=== PATIENT | male | born 1945 | race Caucasian/White ===

== ENCOUNTER → 2017-04-30 | Outpatient (CLI) | payer MEDICARE, OTHER ==
[2017-04-30 11:02] LABS: Basophils % (A) 0 %; CH 30.9; CHCM 35.1; Eosinophils # (A) 0.2 k/uL (0-0.7); Eosinophils % (A) 4 %; HCT 42.8 % (39.0-53.0); HDW 2.74; Luc # (Auto) 0.13; Luc % (Auto) 3; Lymphocytes # (A) 1.7 k/uL (1.0-4.8); Lymphocytes % (A) 31 %; MCH 30.9 pg (25.0-35.0); MCV 88.5 fL (80.0-100.0); Mean Platelet Volume 7.8; Monocytes # (A) 0.3 k/uL (0-1.0); Monocytes % (A) 6 %; Neutrophils % (A) 57 %; RBC 4.84 m/uL (4.30-5.90); RDW 12.8 % (11.5-15.5); WBC 5.4 k/uL (3.8-10.6); WBC (Perox) 5.57
[2017-04-30 11:46] LABS: ALT 34 U/L (21-72); AST 32 U/L (17-59); Alkaline Phosphatase 109 U/L (38-126); Anion Gap 11 mmol/L; Blood Urea Nitrogen 14 mg/dL (9-20); Carbon Dioxide 29 mmol/L (22-30); Chloride 103 mmol/L (98-107); Cholesterol 154 mg/dL (<200); Glucose 103 mg/dL (74-99); HDL Cholesterol 48 mg/dL (40-60); Non-African American GFR(MDRD) >60 (>60 ml/min/1.73 sqM); Potassium 4.7 mmol/L (3.5-5.1); Sodium 143 mmol/L (137-145); Total Bilirubin 1.1 mg/dL (0.2-1.3); Total Protein 7.4 g/dL (6.3-8.2); Triglycerides 105 mg/dL (<150)
[2017-04-30 12:14] LABS: Prostate Specific Antigen 7.79 ng/mL (0.00-4.00)
== END | disposition home or self-care (01) ==
LOC: LABWHC1 10:24
PROVIDERS: ATTEND Internal Medicine
DX: Z00.00 Encounter for general adult medical examination without abnormal findings (principal); E78.5 Hyperlipidemia, unspecified; R97.20 Elevated prostate specific antigen [PSA]
CPT/HCPCS: 36415; 80053; 80061; 84153; 84439; 84443; 85025

== ENCOUNTER → 2018-11-09 | Outpatient (CLI) | payer MEDICARE, OTHER ==
[2018-11-09 14:29] LABS: Basophils % (A) 1 %; Eosinophils # (A) 0.2 k/uL (0-0.7); Eosinophils % (A) 3 %; HCT 45.7 % (39.0-53.0); HGB 14.4 gm/dL (13.0-17.5); Lymphocytes # (A) 1.8 k/uL (1.0-4.8); Lymphocytes % (A) 27 %; MCH 29.7 pg (25.0-35.0); MCHC 31.6 g/dL (31.0-37.0); MCV 94.2 fL (80.0-100.0); Mean Platelet Volume 7.7; Monocytes # (A) 0.4 k/uL (0-1.0); Monocytes % (A) 6 %; Neutrophils # (A) 4.2 k/uL (1.3-7.7); Neutrophils % (A) 62 %; Platelet Count 231 k/uL (150-450); RBC 4.85 m/uL (4.30-5.90); RDW 12.3 % (11.5-15.5); WBC 6.7 k/uL (3.8-10.6)
[2018-11-09 20:56] LABS: ALT 18 U/L (10-49); AST 27 U/L (14-35); Albumin/Globulin Ratio 2.17 (1.20-2.10); Alkaline Phosphatase 123 U/L (41-126); Calcium 9.8 mg/dL (8.7-10.3); Carbon Dioxide 28.2 mmol/L (21.6-31.8); Chloride 105 mmol/L (96-109); Cholesterol 139 mg/dL (0-200); Globulin 2.3 g/dL (2.1-3.7); Glucose 96 mg/dL (70-110); Potassium 3.9 mmol/L (3.5-5.5); Sodium 142 mmol/L (135-145); Total Bilirubin 0.6 mg/dL (0.3-1.2); Total Protein 7.3 g/dL (6.2-8.2); Triglycerides <50.0 mg/dL (0.0-149.0); VLDL Calculation 9.98 mg/dL (5.00-40.00)
== END | disposition home or self-care (01) ==
LOC: LABWHC1 13:47
PROVIDERS: ATTEND Internal Medicine
DX: Z00.00 Encounter for general adult medical examination without abnormal findings (principal); R97.20 Elevated prostate specific antigen [PSA]
CPT/HCPCS: 36415; 80053; 80061; 84153; 84439; 84443; 85025

== ENCOUNTER → 2019-05-03 | Outpatient (CLI) | payer MEDICARE, OTHER ==
[2019-05-03 10:16] LABS: Basophils % (A) 1 %; Eosinophils # (A) 0.3 k/uL (0-0.7); Eosinophils % (A) 5 %; HCT 41.2 % (39.0-53.0); HGB 13.5 gm/dL (13.0-17.5); Lymphocytes # (A) 1.5 k/uL (1.0-4.8); Lymphocytes % (A) 28 %; MCH 30.4 pg (25.0-35.0); MCHC 32.8 g/dL (31.0-37.0); MCV 92.6 fL (80.0-100.0); Monocytes # (A) 0.3 k/uL (0-1.0); Monocytes % (A) 6 %; Neutrophils # (A) 3.3 k/uL (1.3-7.7); Neutrophils % (A) 60 %; Platelet Count 197 k/uL (150-450); RBC 4.45 m/uL (4.30-5.90); RDW 12.6 % (11.5-15.5); WBC 5.5 k/uL (3.8-10.6)
[2019-05-03 11:46] LABS: Erythrocyte Sedimentation Rate 8 mm/hr (0-15)
[2019-05-03 16:58] LABS: African American GFR (CKD) 106.2 (60.0-200.0); Albumin 4.7 g/dL (3.80-4.90); Albumin/Globulin Ratio 2.35 (1.60-3.17); Anion Gap 7.8 mmol/L (4.00-12.00); Calcium 9.4 mg/dL (8.7-10.3); Carbon Dioxide 28.2 mmol/L (21.6-31.8); Potassium 4.3 mmol/L (3.5-5.5); Total Bilirubin 0.6 mg/dL (0.2-1.2); Total Protein 6.7 g/dL (6.2-8.2)
== END | disposition home or self-care (01) ==
LOC: LABWHC1 09:44
PROVIDERS: ATTEND Internal Medicine
DX: R63.4 Abnormal weight loss (principal); Z12.5 Encounter for screening for malignant neoplasm of prostate
CPT/HCPCS: 84439; 80053; 85652; 84443; 85025; 86038; 36415; G0103

== ENCOUNTER → 2019-05-11 | Outpatient (CLI) | payer MEDICARE, OTHER ==
[2019-05-11 08:09] LABS: African American GFR (CKD) >90 (>60 ml/min/1.73 sqM); Blood Urea Nitrogen 18 mg/dL (9-20)
--- NOTE | 2019-05-11 11:59 | CT ---
EXAMINATION TYPE: CT ChestAbdPelvis w con DATE OF EXAM: 05/11/2019 COMPARISON: Chest x-ray 05/03/2019 HISTORY: Wt Loss CT DLP: 645.9 mGycm Automated exposure control for dose reduction was used. CONTRAST: CT scan of the chest, abdomen and pelvis is performed with Oral Contrast and with IV Contrast, patien t injected with 100 mL of Isovue 300. FINDINGS: LUNGS: The lungs are grossly clear, there is no concerning parenchymal mass or nodule identified. Min imal basilar atelectatic changes noted. There is no pleural effusion or pneumothorax seen. The trac heobronchial tree is patent. MEDIASTINUM: There are no greater than 1 cm hilar or mediastinal lymph nodes. No pericardial effusi on is seen. There are some mild coronary artery calcifications AORTA: 5.2 cm infrarenal abdominal aortic aneurysm is present, there is luminal plaque, neck of the aneurysm measures approximately 2 cm, common iliac arteries are not aneurysmal, extensive atheromatou s changes are present throughout the iliac vasculature. OTHER: Thickening of the gastric wall may be due to lack of distention.. LIVER/GB: No significant abnormality is appreciated. PANCREAS: No significant abnormality is seen. SPLEEN: No significant abnormality is seen. ADRENALS: No significant abnormality is seen. KIDNEYS: No significant abnormality is seen. REPRODUCTIVE ORGANS: Prostate is enlarged and shows associated calcification. Inferior impression on the urinary bladder is present BOWEL: Diverticular changes are seen within the sigmoid colon. FREE AIR: No Free Air visible. ASCITES: None seen. RETROPERITONEAL ADENOPATHY: No retroperitoneal adenopathy is seen. LYMPH NODES: No greater than 1 cm abdominal or pelvic lymph nodes are appreciated. URINARY BLADDER: No significant abnormality is seen. PELVIC ADENOPATHY: None visualized. OSSEOUS STRUCTURES: Degenerative disc disease and facet arthropathy noted within the lumbar spine, t here is a spinal curvature present. IMPRESSION: Infrarenal abdominal aortic aneurysm. Additional findings above. A Yellow level critical message alert has been initiated for Catherine Lancaster MD via the [employer] Critical Results System on 05/11/2019 11:57 AM. This message alert has been sent to Catherine Lancaster MD vi a the preferences provided by the clinician for the receipt of Radiology Critical Findings. Message I D [id number].
== END | disposition home or self-care (01) ==
LOC: RADCTMAIN 07:21
PROVIDERS: ATTEND Internal Medicine
DX: R63.4 Abnormal weight loss (principal); Z13.89 Encounter for screening for other disorder
CPT/HCPCS: 82565; 84520; 71260; 74177; 36415; Q9967

== ENCOUNTER 2019-07-23 10:37 | Day surgery (SDC) | payer MEDICARE, OTHER ==
[2019-07-21 09:27] VITALS: BMI 22.3
[~2019-07-23 10:37] MED LIST: LIDOCAINE 1% 20 ML VIAL (10MG/ML) FOR IV START INTRADERMA PRN
[2019-07-23 11:06] VITALS: TEMP 98.7
[2019-07-23] MEDS: LACTATED RINGERS 1,000 ML IV SCH ×2 (11:08→12:30)
[2019-07-23] MEDS ORDERED: MIDAZOLAM 2 MG/2 ML VIAL ONE (12:32)
[2019-07-23] MEDS ORDERED: LIDOCAINE 1% INJ 10MG/ML (20 ML MDV) ONE (12:32)
[2019-07-23] MEDS ORDERED: fentaNYL (PF) 50 MCG/ML 2 ML AMP ONE (12:32)
[2019-07-23] MEDS ORDERED: PROPOFOL 10 MG/ML 20 ML VIAL IV ONE (12:32)
--- NOTE | 2019-07-23 13:00 | P.PCN ---
Date of Procedure: 07/23/19 Procedure(s) Performed: Brief history: Patient is a pleasant 74-year-old white male, scheduled for an elective upper endoscopy as well as colonoscopy as a part of evaluation of GERD and screening for colorectal neoplasia. Procedure performed: Esophagogastroduodenoscopy with biopsy Colonoscopy with snare polypectomy and biopsy Preoperative diagnosis: GERD Screening for colon cancer Anesthesia: MAC Procedure: After informed consent was obtained from the patient was brought into the endoscopy unit and IV sedation was administered by anesthesia under continuous monitoring. Initially upper endoscopy was done. The Olympus GF 160 video endoscope was inserted inserted into the mouth and esophagus intubated without any difficulty and was gradually advanced into the stomach and duodenum and carefully examined. The bulb and second part of the duodenum appeared normal. The scope was then withdrawn into the stomach adequately insufflated with air and upon careful examination the antrum and body, cardia and fundus appeared normal. The scope was then withdrawn into the esophagus. The GE junction was located at 40 cm to the incisors. It appeared regular with no erythema erosions or ulcerations. Rest of the esophagus appeared normal. Patient tolerated the procedure well. At this time the patient continued to remain sedation. Initial digital rectal examination was normal. Olympus CF 160 video colonoscope was then inserted into the rectum and gradually advanced to the cecum without any difficulty. Careful examination was performed as the scope was gradually being withdrawn. The prep was excellent. The base of the cecum there was a 2 mm polyp that was removed by cold biopsy. In the ascending colon there was a 5 mm broad-based polyp removed by snare polypectomy. In the transverse colon there was a 7-8 mm broad-based polyp removed by snare polypectomy. In the descending colon there was a 2 mm polyp that was removed by snare polypectomy. Rest of the The cecum, ascending colon, transverse colon, descending colon, sigmoid colon and rectum appeared normal. Retroflexion was performed in the rectum and no lesions were noted. Patient tolerated the procedure well. Impression: 1. Upper endoscopy revealed mild antral gastritis 2. Colonoscopy revealed: a) 2 mm cecal polyp status post removal by cold biopsy b) 5 mm ascending colon polyp serous was snare polypectomy c) 7-8 mm transverse colon polyps is post polypectomy d) 3 mm descending colon polyp status post polypectomy Recommendations: Findings of this examination were discussed with the patient as well as a family. He was advised to follow with the biopsy results. If the biopsy shows an adenoma he can have a repeat colonoscopy in 3 years
[2019-07-23 13:08] VITALS: RESP 16
[2019-07-23 13:28] VITALS: BP 109/71; PULSE 72
== END 2019-07-23 13:40 | disposition home or self-care (01) ==
LOC: ORWHC2ENDO 10:37
PROVIDERS: ATTEND Internal Medicine Gastroenterology
DX: Z12.11 Encounter for screening for malignant neoplasm of colon (principal); D12.0 Benign neoplasm of cecum; D12.3 Benign neoplasm of transverse colon; K63.5 Polyp of colon; K29.50 Unspecified chronic gastritis without bleeding; I10 Essential (primary) hypertension; E78.5 Hyperlipidemia, unspecified; I71.4 Abdominal aortic aneurysm, without rupture; F17.210 Nicotine dependence, cigarettes, uncomplicated; N42.9 Disorder of prostate, unspecified; R63.4 Abnormal weight loss; Z68.22 Body mass index [BMI] 22.0-22.9, adult; Z79.82 Long term (current) use of aspirin; Z79.899 Other long term (current) drug therapy
CPT/HCPCS: 88305; 88342; 45380; 45385; 43239; J2250; J2001; J3010; J2704

== ENCOUNTER 2019-09-24 17:31 | Emergency (ER) | payer MEDICARE, OTHER ==
[2019-09-24 17:45] VITALS: BP 157/89; PULSE 101; RESP 18; TEMP 97.4
--- NOTE | 2019-09-24 18:28 | ED ---
Fall HPI - General Chief Complaint: Fall Stated Complaint: Fall, face & arm injury Time Seen by Provider: 09/24/19 17:50 Source: patient, RN notes reviewed, old records reviewed Limitations: no limitations - History of Present Illness Initial Comments: This is a 74-year-old male the ER status post fall patient unsure of events surrounding fall happened at his son's house. Patient believes he just took a wrong step as he believes that he stepped to long and he fell, did hit his had his nose and his left wrist. Denying loss of consciousness is not on blood thinners. Patient did then drive himself to his house and then reports to his with the ER about 2 hours later. 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 Witnessed: yes, by family Place Fall Occurred: home Loss of Consciousness: none Prolonged Down Time?: no Symptoms Prior to Fall: none Location: head, face Location - Extremities: Left: Hand Severity: moderate Severity scale (1-10): 3 Quality: dull, stabbing Context: tripped/slipped Associated Symptoms: denies - Related Data Home Medications Medication Instructions Recorded Confirmed Simvastatin 20 mg PO HS 09/28/15 07/23/19 Aspirin [Adult Low Dose Aspirin EC] 81 mg PO DAILY 07/21/19 07/23/19 Losartan [Cozaar] 50 mg PO DAILY 07/21/19 07/23/19 amLODIPine [Norvasc] 5 mg PO DAILY 07/21/19 07/23/19 Allergies Allergy/AdvReac Type Severity Reaction Status Date / Time No Known Allergies Allergy Verified 09/24/19 17:45 Review of Systems ROS Statement: Those systems with pertinent positive or pertinent negative responses have been documented in the HPI. ROS Other: All systems not noted in ROS Statement are negative. 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), ENLARGED PROSTATE History of Any Multi-Drug Resistant Organisms: None Reported Past Surgical History: Appendectomy Past Anesthesia/Blood Transfusion Reactions: No Reported Reaction Past Psychological History: No Psychological Hx Reported Smoking Status: Current every day smoker Past Alcohol Use History: None Reported Past Drug Use History: None Reported - Past Family History Father Family Medical History: Cancer Brother(s) Family Medical History: Cancer Sister(s) Family Medical History: Cancer General Exam Limitations: no limitations General appearance: alert, in no apparent distress Head exam: Present: normocephalic, normal inspection. Absent: atraumatic (Patient does have obvious nasal fracture with deformity and swelling) Eye exam: Present: normal appearance, PERRL, EOMI. Absent: scleral icterus, conjunctival injection, periorbital swelling ENT exam: Present: normal exam, mucous membranes moist Neck exam: Present: normal inspection. Absent: tenderness, meningismus, lymphadenopathy Respiratory exam: Present: normal lung sounds bilaterally. Absent: respiratory distress, wheezes, rales, rhonchi, stridor Cardiovascular Exam: Present: regular rate, normal rhythm, normal heart sounds. Absent: systolic murmur, diastolic murmur, rubs, gallop, clicks GI/Abdominal exam: Present: soft, normal bowel sounds. Absent: distended, tenderness, guarding, rebound, rigid Extremities exam: Present: normal inspection, full ROM, normal capillary refill, other (First showed deformity, 2+ pulses radial and all are, patient has full range of motion and good sensation). Absent: tenderness, pedal edema, joint swelling, calf tenderness Back exam: Present: normal inspection Neurological exam: Present: alert, oriented X3, CN II-XII intact Psychiatric exam: Present: normal affect, normal mood Skin exam: Present: warm, dry, intact, normal color. Absent: rash Course Vital Signs 09/24/19 17:43 Temperature 97.4 F L Pulse Rate 101 H Respiratory 18 Rate Blood Pressure 157/89 O2 Sat by Pulse 97 Oximetry - Reevaluation(s) Reevaluation #1: 09/24/19 19:04 Medical records reviewed Reevaluation #2: 09/24/19 19:04 had a persistent bleeding from the nose but no septal hematoma is noted on reexam Reevaluation #3: 09/24/19 19:04 Patient is able to ambulate without difficulty Medical Decision Making - Medical Decision Making 74 male the ER status post trip and fall patient had troponin fall left wrist injury head injury with nasal fracture. Patient now requiring pain medication currently. He will be discharged home - Radiology Data Radiology results: report reviewed (CT brain C-spine and x-ray wrist is interpreted as negative for fracture and negative for traumatic injury), image reviewed Disposition Clinical Impression: Fall, Head injury, Contusion of left wrist, Nasal fracture Disposition: HOME SELF-CARE Instructions (If sedation given, give patient instructions): Fall Prevention for Older Adults (ED), Nasal Fracture (ED), Wrist Injury (ED) Is patient prescribed a controlled substance at d/c from ED?: No Referrals: Catherine Lancaster MD [Primary Care Provider] - 1-2 days
--- NOTE | 2019-09-24 18:34 | CT ---
EXAMINATION TYPE: CT brain sisi matthews DATE OF EXAM: 09/24/2019 COMPARISON: None HISTORY: fall Headache. Neck pain CT DLP: combined DLP 1133.9 mGycm Automated exposure control for dose reduction was used. TECHNIQUE: CT scan of the head and cervical spine are performed without contrast. FINDINGS: There is mild cerebral atrophy. There is no mass effect nor midline shift. There is no si gn of intracranial hemorrhage. The calvarium is intact. Cervical vertebra have normal alignment. There is hypertrophic anterior spurring in the lower cervica l spine. Skull base is intact. Posterior elements are intact. There is mild facet arthropathy. There is no evidence of cervical spine fracture. There is some mucosal thickening in the ethmoid sinuses. IMPRESSION: Mild cerebral atrophy. No acute intracranial abnormality. Spondylotic changes in the cervical spine. No fracture seen.
--- NOTE | 2019-09-24 18:36 | CT ---
EXAMINATION TYPE: CT facial bones wo con DATE OF EXAM: 09/24/2019 COMPARISON: None HISTORY: fall CT DLP: combined DLP 1133.9 mGycm Automated exposure control for dose reduction was used. TECHNIQUE: CT scan of the sinuses is performed without contrast, axial images are obtained, coronal r eformatted images are also reviewed. FINDINGS: The mandibular ring is intact. Temporomandibular joints are intact and zygomatic arches are intact. There is comminuted fracture of the nasal bone with some displacement to the left side. Ther e is soft tissue swelling anterior to the nasal bone on the right side. There is extensive increased density in the nasopharynx and ethmoid sinuses consistent with debris and blood clot. The maxillary sinuses are normally aerated. There is no evidence of a blowout fracture. The orbital m argins are intact. The maxilla appears intact. There is normal aeration of the mastoid sinuses. There is no evidence of orbital mass. IMPRESSION: Comminuted nasal bone fracture with hemorrhage and debris in the nasopharynx and ethmoid sinus. Soft tissue swelling. No orbital fracture seen.
--- NOTE | 2019-09-24 19:01 | XR ---
EXAMINATION TYPE: XR wrist complete LT DATE OF EXAM: 09/24/2019 COMPARISON: NONE HISTORY: Pain and swelling TECHNIQUE: 4 views FINDINGS: There is some narrowing of the radiocarpal joint space. I see no fracture nor dislocation. There is deformity of the scaphoid consistent with an old injury. There is moderate osteoarthritis at the first carpometacarpal joint. IMPRESSION: Osteoarthritis. No acute fracture seen. Moderately severe osteoarthritis at the first car pometacarpal joint.
== END 2019-09-24 19:54 | disposition home or self-care (01) ==
LOC: EC 17:31
DX: S02.2XXA Fracture of nasal bones, initial encounter for closed fracture (principal); S60.212A Contusion of left wrist, initial encounter; E78.5 Hyperlipidemia, unspecified; I10 Essential (primary) hypertension; F17.200 Nicotine dependence, unspecified, uncomplicated; Z79.82 Long term (current) use of aspirin; Z79.899 Other long term (current) drug therapy; W01.0XXA Fall on same level from slipping, tripping and stumbling without subsequent striking against object, initial encounter; Y93.89 Activity, other specified; Y92.009 Unspecified place in unspecified non-institutional (private) residence as the place of occurrence of the external cause
CPT/HCPCS: 70450; 70486; 72125; 99284

== ENCOUNTER → 2019-09-29 | Outpatient (CLI) | payer MEDICARE, OTHER ==
[2019-09-29 12:25] LABS: Basophils # (A) 0.1 k/uL (0-0.2); Basophils % (A) 1 %; Eosinophils # (A) 0.4 k/uL (0-0.7); Eosinophils % (A) 5 %; HCT 41.4 % (39.0-53.0); HGB 13.4 gm/dL (13.0-17.5); Lymphocytes # (A) 1.6 k/uL (1.0-4.8); Lymphocytes % (A) 22 %; MCH 30.3 pg (25.0-35.0); MCHC 32.5 g/dL (31.0-37.0); MCV 93.3 fL (80.0-100.0); Mean Platelet Volume 7.1; Monocytes # (A) 0.5 k/uL (0-1.0); Monocytes % (A) 6 %; Neutrophils # (A) 4.8 k/uL (1.3-7.7); Neutrophils % (A) 65 %; Platelet Count 282 k/uL (150-450); RBC 4.43 m/uL (4.30-5.90); RDW 12.1 % (11.5-15.5); WBC 7.5 k/uL (3.8-10.6)
[2019-09-29 13:56] LABS: Erythrocyte Sedimentation Rate 14 mm/hr (0-15)
[2019-09-29 17:52] LABS: T4, Free (Free Thyroxine) 1.1 ng/dL (0.80-1.80)
[2019-09-29 18:03] LABS: African American GFR (CKD) 106.2 (60.0-200.0); Albumin 4.7 g/dL (3.80-4.90); Albumin/Globulin Ratio 2.24 (1.60-3.17); Anion Gap 9.8 mmol/L (4.00-12.00); BUN/Creat Ratio 24.29 Ratio (12.00-20.00); Calcium 9.5 mg/dL (8.7-10.3); Carbon Dioxide 28.2 mmol/L (21.6-31.8); Globulin 2.1 g/dL (1.6-3.3); Potassium 5.2 mmol/L (3.5-5.5); Total Bilirubin 0.7 mg/dL (0.3-1.2); Total Protein 6.8 g/dL (6.2-8.2)
== END | disposition home or self-care (01) ==
LOC: LABWHC1 11:06
PROVIDERS: ATTEND Internal Medicine
DX: R55 Syncope and collapse (principal)
CPT/HCPCS: 36415; 80053; 82607; 84439; 84443; 85025; 85652

== ENCOUNTER → 2020-04-24 | Outpatient (CLI) | payer MEDICARE | END | disposition home or self-care (01) | LOC: LABWHC1 13:25 | PROVIDERS: ATTEND Urology | DX: R97.20 Elevated prostate specific antigen [PSA] (principal) | CPT/HCPCS: 36415; 84153 ==

== ENCOUNTER → 2020-09-19 | Outpatient (CLI) | payer MEDICARE ==
[2020-09-19 11:31] LABS: Basophils # (A) 0.1 k/uL (0-0.2); Basophils % (A) 1 %; Eosinophils # (A) 0.3 k/uL (0-0.7); Eosinophils % (A) 4 %; HCT 46.5 % (39.0-53.0); HGB 15.1 gm/dL (13.0-17.5); Lymphocytes % (A) 27 %; MCH 30.8 pg (25.0-35.0); MCHC 32.5 g/dL (31.0-37.0); MCV 94.8 fL (80.0-100.0); Mean Platelet Volume 8.9; Monocytes # (A) 0.5 k/uL (0-1.0); Monocytes % (A) 7 %; Neutrophils # (A) 4.6 k/uL (1.3-7.7); Neutrophils % (A) 60 %; Platelet Count 226 k/uL (150-450); RDW 12.5 % (11.5-15.5); WBC 7.6 k/uL (3.8-10.6)
[2020-09-19 17:40] LABS: African American GFR (CKD) 105.5 (60.0-200.0); Albumin 4.7 g/dL (3.80-4.90); Albumin/Globulin Ratio 1.81 (1.60-3.17); Anion Gap 7.6 mmol/L (4.00-12.00); BUN/Creat Ratio 11.43 Ratio (12.00-20.00); Calcium 9.8 mg/dL (8.7-10.3); Carbon Dioxide 29.4 mmol/L (21.6-31.8); Chol/HDL Ratio 3.76; Globulin 2.6 g/dL (1.6-3.3); LDL Cholesterol,Calculated 87.8 mg/dL (0.0-131.0); Potassium 5.4 mmol/L (3.5-5.5); Total Bilirubin 0.5 mg/dL (0.2-1.2); Total Protein 7.3 g/dL (6.2-8.2); VLDL Calculation 39.2 mg/dL (5.00-40.00)
== END | disposition home or self-care (01) ==
LOC: LABWHC1 08:57
PROVIDERS: ATTEND Internal Medicine
DX: Z00.00 Encounter for general adult medical examination without abnormal findings (principal); E78.5 Hyperlipidemia, unspecified; I10 Essential (primary) hypertension
CPT/HCPCS: 36415; 80053; 80061; 84439; 84443; 85025

== ENCOUNTER → 2021-04-24 | Outpatient (CLI) | payer MEDICARE | END | disposition home or self-care (01) | LOC: LABWHC1 09:20 | PROVIDERS: ATTEND Urology | DX: R97.20 Elevated prostate specific antigen [PSA] (principal) | CPT/HCPCS: 36415; 84153 ==

== ENCOUNTER → 2021-12-03 | Outpatient (CLI) | payer MEDICARE ==
[2021-12-03 14:16] LABS: Basophils # (A) 0.04 X 10*3/uL (0.00-0.10); Basophils % (A) 0.7 %; Eosinophils # (A) 0.24 X 10*3/uL (0.04-0.35); HGB 13.6 g/dL (13.0-17.0); Lymphocytes # (A) 1.82 X 10*3/uL (0.90-5.00); Lymphocytes % (A) 30.1 %; MCH 28.8 pg (27.0-32.0); MCHC 31.6 g/dL (32.0-37.0); MCV 91.1 fL (80.0-97.0); Mean Platelet Volume 11.6 fL (9.5-12.2); Monocytes # (A) 0.62 X 10*3/uL (0.20-1.00); Monocytes % (A) 10.3 %; Neutrophils # (A) 3.28 X 10*3/uL (1.80-7.70); Neutrophils % (A) 54.2 %; Platelet Count 231 X 10*3/uL (140-440); RBC 4.72 X 10*6/uL (4.40-5.60); RDW 14.1 % (11.5-14.5); WBC 6.04 X 10*3/uL (4.50-10.00)
[2021-12-03 15:49] LABS: ALT 31 U/L (10-49); AST 33 U/L (14-35); African American GFR (CKD) 101.7 (60.0-200.0); Albumin/Globulin Ratio 1.88 (1.60-3.17); Alkaline Phosphatase 123 U/L (41-126); BUN/Creat Ratio 22.47 Ratio (12.00-20.00); Blood Urea Nitrogen 16.9 mg/dL (9.0-27.0); Calcium 9.6 mg/dL (8.7-10.3); Carbon Dioxide 24.8 mmol/L (20.0-27.5); Chloride 103 mmol/L (96-109); Chol/HDL Ratio 3.12 Ratio; Globulin 2.6 g/dL (1.6-3.3); Glucose 117 mg/dL (70-110); LDL Cholesterol,Calculated 83.3 mg/dL (0.0-131.0); Non-African American GFR(CKD) 87.8 (60.0-200.0); Sodium 141 mmol/L (135-145); Total Protein 7.6 g/dL (6.2-8.2); VLDL Calculation 16.58 mg/dL (5.00-40.00)
== END | disposition home or self-care (01) ==
LOC: LABWHC1 08:44
PROVIDERS: ATTEND Internal Medicine
DX: Z00.00 Encounter for general adult medical examination without abnormal findings (principal); E78.5 Hyperlipidemia, unspecified; I10 Essential (primary) hypertension
CPT/HCPCS: 36415; 80053; 80061; 84439; 84443; 85025

== ENCOUNTER → 2022-04-24 | Outpatient (CLI) | payer MEDICARE | END | disposition home or self-care (01) | LOC: LABWHC1 08:40 | PROVIDERS: ATTEND Urology | DX: R97.20 Elevated prostate specific antigen [PSA] (principal) | CPT/HCPCS: 36415; 84153 ==

== ENCOUNTER → 2022-10-24 | Outpatient (CLI) | payer MEDICARE | END | disposition home or self-care (01) | LOC: LABWHC1 08:57 | PROVIDERS: ATTEND Urology | DX: R97.20 Elevated prostate specific antigen [PSA] (principal) | CPT/HCPCS: 36415; 84153 ==

== ENCOUNTER → 2022-12-10 | Outpatient (CLI) | payer MEDICARE ==
[2022-12-10 14:42] LABS: Basophils # (A) 0.06 X 10*3/uL (0.00-0.10); Basophils % (A) 0.6 %; Eosinophils # (A) 0.26 X 10*3/uL (0.04-0.35); Eosinophils % (A) 2.8 %; HCT 43.1 % (39.6-50.0); HGB 14.1 g/dL (13.0-17.0); Immature Grans, Automated 1.1 %; Lymphocytes # (A) 1.86 X 10*3/uL (0.90-5.00); Lymphocytes % (A) 19.8 %; MCH 29.7 pg (27.0-32.0); MCHC 32.7 g/dL (32.0-37.0); MCV 90.9 fL (80.0-97.0); Mean Platelet Volume 11.3 fL (9.5-12.2); Monocytes # (A) 0.82 X 10*3/uL (0.20-1.00); Monocytes % (A) 8.7 %; NRBC Per 100 WBC 0 /100 WBCS (0.0-0.0); Platelet Count 237 X 10*3/uL (140-440); RBC 4.74 X 10*6/uL (4.40-5.60); RDW 12.8 % (11.5-14.5)
[2022-12-10 19:28] LABS: ALT 38 U/L (10-49); AST 42 U/L (14-35); African American GFR (CKD) 105.5 (60.0-200.0); Albumin/Globulin Ratio 1.79 (1.60-3.17); Alkaline Phosphatase 115 U/L (41-126); BUN/Creat Ratio 23.08 Ratio (12.00-20.00); Blood Urea Nitrogen 15.6 mg/dL (9.0-27.0); Calcium 9.6 mg/dL (8.7-10.3); Chloride 103 mmol/L (96-109); Chol/HDL Ratio 3.84 Ratio; Globulin 2.8 g/dL (1.6-3.3); Glucose 109 mg/dL (70-110); LDL Cholesterol,Calculated 102.3 mg/dL (0.0-131.0); Non-African American GFR(CKD) 91.1 (60.0-200.0); Sodium 141 mmol/L (135-145); Total Protein 7.7 g/dL (6.2-8.2)
== END | disposition home or self-care (01) ==
LOC: LABWHC1 10:00
PROVIDERS: ATTEND Internal Medicine
DX: I10 Essential (primary) hypertension (principal); E78.5 Hyperlipidemia, unspecified
CPT/HCPCS: 36415; 80053; 80061; 84439; 84443; 85025

== ENCOUNTER → 2023-04-24 | Outpatient (CLI) | payer MEDICARE, SELFPAY | END | disposition home or self-care (01) | LOC: LABWHC1 12:03 | PROVIDERS: ATTEND Urology | DX: R97.20 Elevated prostate specific antigen [PSA] (principal) | CPT/HCPCS: 36415; 84153 ==

== ENCOUNTER → 2023-06-02 | Outpatient (CLI) | payer MEDICARE, SELFPAY | END | disposition home or self-care (01) | LOC: LABWHC1 09:02 | PROVIDERS: ATTEND Urology | DX: R97.20 Elevated prostate specific antigen [PSA] (principal) | CPT/HCPCS: 36415; 84153 ==

== ENCOUNTER → 2023-10-22 | Outpatient (CLI) | payer MEDICARE ==
[2023-10-22 16:01] LABS: Chol/HDL Ratio 3.46 Ratio; LDL Cholesterol,Calculated 89.6 mg/dL (0.0-131.0)
[2023-10-22 16:02] LABS: ALT 40 U/L (10-49); AST 42 U/L (14-35)
== END | disposition home or self-care (01) ==
LOC: LABWHC1 10:39
PROVIDERS: ATTEND Internal Medicine Cardiovascular Disease
DX: E78.2 Mixed hyperlipidemia (principal)
CPT/HCPCS: 36415; 80061; 84450; 84460

== ENCOUNTER → 2023-11-04 | Outpatient (CLI) | payer MEDICARE | END | disposition home or self-care (01) | LOC: LABWHC1 08:27 | PROVIDERS: ATTEND Urology | DX: R97.20 Elevated prostate specific antigen [PSA] (principal) | CPT/HCPCS: 36415; 84153 ==

== ENCOUNTER → 2023-12-05 | Outpatient (CLI) | payer MEDICARE ==
--- NOTE | 2023-12-07 21:00 | MR ---
EXAMINATION TYPE: MR Prostate wo/w con DATE OF EXAM: 12/05/2023 9:19 AM COMPARISON: 05/11/2019. CLINICAL INDICATION:Male, 78 years old with history of R97.20 ELEVATED PSA; Elevated PSA TECHNIQUE: Multi-planar, multi-sequence imaging of the pelvis is performed prior to and following the uncomplicated administration of bolus intravenous gadolinium. CONTRAST: 7 Gadavist Interpretive Criteria: PI-RADS v2.1 SERUM PSA: 7.8 on May 2023.. 9.97 on October 2023.. SURGICAL PATHOLOGY: Negative biopsy on 03/27/2012. FINDINGS: Prostatic dimensions: 5.8 x 5.9 x 4.4 cm. Ellipsoid Volume:78.84 (PSA density=0.13 ng/mL/mL) CENTRAL GLAND (Central and Transition Zones/CZ+TZ): Multiple bilateral, heterogenous appearing hypertrophic stromal nodules, without suspicious lesion. (PI-RADS 2) PERIPHERAL ZONE (PZ): Bilateral linear, indistinct wedgelike areas of low ADC, and low T2 signal, No evidence of masslike a bnormality, or localized perfusional hypervascularity, to further suggest a focus of clinically signi ficant prostate cancer. (PI-RADS 2) SEMINAL VESICLES (SV): Symmetric and unremarkable. PERIPROSTATIC TISSUES: Unremarkable. LYMPH NODES: No enlarged pelvic lymph node. REMAINING PELVIS: Bladder wall is within normal limits given distention. No abnormal free or organized intrapelvic fluid collection. No pathologic bowel dilation or mural thickening. Right fat containing inguinal hernia Biiliac stent grafts partially visualized the abdominal aorta is dilated up to 4.1 cm. OSSEOUS STRUCTURES: No suspicious osseous abnormality. IMPRESSION: 1. No specific features for high-risk prostate cancer. Maximum PI-RADS score: 2. 2. Moderate BPH, estimated gland volume 78.84 mL.
== END | disposition home or self-care (01) ==
LOC: RADMRIMAIN 08:13
PROVIDERS: ATTEND Urology
DX: N40.0 Benign prostatic hyperplasia without lower urinary tract symptoms (principal); R97.20 Elevated prostate specific antigen [PSA]
CPT/HCPCS: 72197; A9585

== ENCOUNTER → 2024-02-24 | Outpatient (CLI) | payer MEDICARE ==
[2024-02-24 15:59] LABS: Basophils # (A) 0.05 X 10*3/uL (0.00-0.10); Basophils % (A) 0.7 %; Eosinophils # (A) 0.36 X 10*3/uL (0.04-0.35); Eosinophils % (A) 5.2 %; HCT 46.3 % (39.6-50.0); HGB 14.7 g/dL (13.0-17.0); Lymphocytes # (A) 1.99 X 10*3/uL (0.90-5.00); Lymphocytes % (A) 28.6 %; MCH 29.4 pg (27.0-32.0); MCHC 31.7 g/dL (32.0-37.0); MCV 92.6 FL (80.0-97.0); Monocytes # (A) 0.57 X 10*3/uL (0.20-1.00); Monocytes % (A) 8.2 %; NRBC Per 100 WBC 0 X 10*3/uL (0.00-0.01); Neutrophils # (A) 3.96 X 10*3/uL (1.80-7.70); Neutrophils % (A) 56.7 %; Platelet Count 188 X 10*3/uL (140-440); RDW 12.9 % (11.5-14.5); WBC 6.97 X 10*3/uL (4.50-10.00)
[2024-02-24 16:37] LABS: ALT 27 U/L (10-49); AST 32 U/L (14-35); Albumin 4.8 g/dL (3.8-4.9); Albumin/Globulin Ratio 1.66 Ratio (1.60-3.17); Alkaline Phosphatase 126 U/L (41-126); BUN/Creat Ratio 29.33 Ratio (12.00-20.00); Blood Urea Nitrogen 17.6 mg/dL (9.0-27.0); Calcium 9.9 mg/dL (8.7-10.3); Carbon Dioxide 26.8 mmol/L (21.6-31.8); Chloride 102 mmol/L (96-109); Chol/HDL Ratio 3.21 Ratio; Globulin 2.9 g/dL (1.6-3.3); Glucose 104 mg/dL (70-110); LDL Cholesterol,Calculated 90.8 mg/dL (0.0-131.0); Sodium 141 mmol/L (135-145); T4, Free (Free Thyroxine) 1.09 ng/dL (0.80-1.80); Total Bilirubin 0.5 mg/dL (0.3-1.2); Total Protein 7.7 g/dL (6.2-8.2)
== END | disposition home or self-care (01) ==
LOC: LABWHC1 09:25
PROVIDERS: ATTEND Internal Medicine
DX: I10 Essential (primary) hypertension (principal); E78.5 Hyperlipidemia, unspecified
CPT/HCPCS: 36415; 80053; 80061; 83036; 84439; 84443; 85025

== ENCOUNTER → 2024-05-03 | Outpatient (CLI) | payer MEDICARE | END | disposition home or self-care (01) | LOC: LABWHC1 10:03 | PROVIDERS: ATTEND Urology | DX: R97.20 Elevated prostate specific antigen [PSA] (principal) | CPT/HCPCS: 36415; 84153 ==

== ENCOUNTER 2024-07-13 09:36 | Emergency (ER) | payer MEDICARE | END 2024-07-13 12:59 | disposition home or self-care (01) | LOC: EC 09:36 | DX: N39.0 Urinary tract infection, site not specified (principal) | CPT/HCPCS: 51798; 87077; 87086; 87186; 99283 ==

== ENCOUNTER → 2024-07-19 | Outpatient (CLI) | payer MEDICARE ==
--- NOTE | 2024-07-19 11:20 | US ---
EXAMINATION TYPE: US venous doppler duplex LE DATE OF EXAM: 07/19/2024 11:03 AM COMPARISON: NONE CLINICAL INDICATION: Male, 79 years old with history of M79.606 PAIN IN LEG, UNSPECIFIED; lt foot red ness and edema SIDE PERFORMED: Bilateral TECHNIQUE: The lower extremity deep venous system is examined utilizing real time linear array sonog marley with graded compression, doppler sonography and color-flow sonography. VESSELS IMAGED: Common Femoral Vein Deep Femoral Vein Greater Saphenous Vein * Femoral Vein Popliteal Vein Small Saphenous Vein * Proximal Calf Veins (* superficial vessels) Right Leg: Negative for DVT Left Leg: Negative for DVT results given to Ashley at office IMPRESSION: Grayscale, color doppler, spectral doppler imaging performed of the deep veins of the lo wer extremities. There is normal flow, compressibility, vascular waveforms.
[2024-07-19 16:59] LABS: BUN/Creat Ratio 27.67 Ratio (12.00-20.00); Blood Urea Nitrogen 49.8 mg/dL (9.0-27.0); Glucose 109 mg/dL (70-110)
[2024-07-19 17:00] LABS: ALT 33 U/L (10-49); AST 27 U/L (14-35); Albumin 3.6 g/dL (3.8-4.9); Albumin/Globulin Ratio 1.24 Ratio (1.60-3.17); Alkaline Phosphatase 101 U/L (41-126); Calcium 8.7 mg/dL (8.7-10.3); Carbon Dioxide 21.8 mmol/L (21.6-31.8); Chloride 101 mmol/L (96-109); Globulin 2.9 g/dL (1.6-3.3); Potassium 3.6 mmol/L (3.5-5.5); Sodium 139 mmol/L (135-145); Total Bilirubin 0.8 mg/dL (0.3-1.2); Total Protein 6.5 g/dL (6.2-8.2)
[2024-07-19 17:11] LABS: Basophils # (A) 0.03 X 10*3/uL (0.00-0.10); Basophils % (A) 0.2 %; Eosinophils # (A) 0.04 X 10*3/uL (0.04-0.35); Eosinophils % (A) 0.3 %; HCT 32.2 % (39.6-50.0); HGB 10.7 g/dL (13.0-17.0); Lymphocytes # (A) 1.16 X 10*3/uL (0.90-5.00); Lymphocytes % (A) 9.6 %; MCH 30.1 pg (27.0-32.0); MCHC 33.2 g/dL (32.0-37.0); MCV 90.7 FL (80.0-97.0); Mean Platelet Volume 12.9 FL (9.5-12.2); Monocytes # (A) 0.73 X 10*3/uL (0.20-1.00); Monocytes % (A) 6.1 %; NRBC Per 100 WBC 0 X 10*3/uL (0.00-0.01); Neutrophils # (A) 9.56 X 10*3/uL (1.80-7.70); Neutrophils % (A) 79.6 %; Platelet Count 259 X 10*3/uL (140-440); RBC 3.55 X 10*6/uL (4.40-5.60); RDW 13.9 % (11.5-14.5); WBC 12.03 X 10*3/uL (4.50-10.00)
[2024-07-19 17:23] LABS: Erythrocyte Sedimentation Rate 103 mm/Hr (0-20)
== END | disposition home or self-care (01) ==
LOC: RADUSWWP 10:20
PROVIDERS: ATTEND Internal Medicine
DX: M79.606 Pain in leg, unspecified
CPT/HCPCS: 80053; 84153; 84443; 85025; 85652; 93970

== ENCOUNTER 2024-07-23 15:28 | Inpatient (IN) | payer MEDICARE ==
--- NOTE | 2024-07-23 16:31 | ED ---
Male Urogenital HPI - General Chief complaint: Urogenital Stated complaint: frequent urination/AMS Time Seen by Provider: 07/23/24 15:40 Source: patient, family, RN notes reviewed Mode of arrival: ambulatory Limitations: no limitations - History of Present Illness Initial comments: 79-year-old male presents emergency department accompanied by his for chief complaint of urinary tract infection. Patient was advised by his primary care provider, Dr. Soria, to report to the emergency department for a complicated urinary tract infection. Currently, patient is denying symptoms of abdominal pain, suprapubic tenderness, increase in urinary frequency or urgency, dysuria or hematuria. Patient is denying flank pain, nausea, vomiting, fevers or chil ls. Patient has been on multiple antibiotics over the past few weeks, urine culture and chest sent on 07/20. Patient denies history of chronic kidney disease. - Related Data Home Medications Medication Instructions Recorded Confirmed Simvastatin 20 mg PO HS 09/28/15 07/23/24 Aspirin [Adult Low Dose Aspirin EC] 81 mg PO DAILY 07/21/19 07/23/24 amLODIPine [Norvasc] 5 mg PO HS 07/21/19 07/23/24 Ciprofloxacin HCl [Cipro] 500 mg PO DIRECTED 07/23/24 07/23/24 Losartan Potassium 100 mg PO HS 07/23/24 07/23/24 Allergies Allergy/AdvReac Type Severity Reaction Status Date / Time No Known Allergies Allergy Verified 07/23/24 16:38 Review of Systems ROS Statement: Those systems with pertinent positive or pertinent negative responses have been documented in the HPI. ROS Other: All systems not noted in ROS Statement are negative. 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), ENLARGED PROSTATE History of Any Multi-Drug Resistant Organisms: None Reported Past Surgical History: Appendectomy Past Anesthesia/Blood Transfusion Reactions: No Reported Reaction Past Psychological History: No Psychological Hx Reported Smoking Status: Current some day smoker Past Alcohol Use History: None Reported Past Drug Use History: None Reported - Past Family History Father Family Medical History: Cancer Brother(s) Family Medical History: Cancer Sister(s) Family Medical History: Cancer General Exam Limitations: no limitations General appearance: alert, in no apparent distress Head exam: Present: atraumatic, normocephalic, normal inspection Eye exam: Present: normal appearance, PERRL, EOMI. Absent: scleral icterus, conjunctival injection, periorbital swelling ENT exam: Present: normal exam, mucous membranes moist Neck exam: Present: normal inspection. Absent: tenderness, meningismus, lymphadenopathy Respiratory exam: Present: normal lung sounds bilaterally. Absent: respiratory distress, wheezes, rales, rhonchi, stridor Cardiovascular Exam: Present: regular rate, normal rhythm, normal heart sounds. Absent: systolic murmur, diastolic murmur, rubs, gallop, clicks GI/Abdominal exam: Present: soft, normal bowel sounds. Absent: distended, tenderness, guarding, rebound, rigid Extremities exam: Present: normal inspection, full ROM, normal capillary refill. Absent: tenderness, pedal edema, joint swelling, calf tenderness Back exam: Present: normal inspection Neurological exam: Present: alert, oriented X3, CN II-XII intact Skin exam: Present: warm, dry, intact, normal color. Absent: rash Course Vital Signs 07/23/24 15:46 Temperature 98.5 F Pulse Rate 105 H Respiratory 18 Rate Blood Pressure 112/68 O2 Sat by Pulse 96 Oximetry Medical Decision Making - Medical Decision Making Was pt. sent in by a medical professional or institution (, PA, PRIVATE BRANCH EXCHANGE SERVICE ADVISER, urgent care, hospital, or longterm...) When possible be specific @ -No Did you speak to anyone other than the patient for history (EMS, parent, family, police, friend...)? What history was obtained from this source @ -No Did you review nursing and triage notes (agree or disagree)? Why? @ -I reviewed and agree with nursing and triage notes Were old charts reviewed (outside hosp., previous admission, EMS record, old EK G, old radiological studies, urgent care reports/EKG's, longterm records)? Report findings @ -Reviewed the patient's urine culture from 07/20 which revealed growth of E. coli. Differential Diagnosis (chest pain, altered mental status, abdominal pain women, abdominal pain men, vaginal bleeding, weakness, fever, dyspnea, syncope, headache, dizziness, GI bleed, back pain, seizure, CVA, palpatations, mental health, musculoskeletal)? @ -Differential Abdominal Pain Men: Appendicitis, cholecystitis, diverticulosis, ischemic bowel, pancreatitis, hepatitis, UTI, gastroenteritis, AAA, incarcerated hernia, bowel obstruction, constipation, inflammatory bowel, hepatitis, peptic ulcer disease, splenic infarction, perforated viscus, testicular torsion, this is not meant to be an all-inclusive list EKG interpreted by me (3pts min.). @ -None X-rays interpreted by me (1pt min.). @ -None done CT interpreted by me (1pt min.). @ -None done U/S interpreted by me (1pt. min.). @ -None done What testing was considered but not performed or refused? (CT, X-rays, U/S, labs)? Why? @ -None What meds were considered but not given or refused? Why? @ -None Did you discuss the management of the patient with other professionals (professionals i.e. , PA, PRIVATE BRANCH EXCHANGE SERVICE ADVISER, lab, RT, psych nurse, manager social, military lawyer, teacher, chief strategy officer, oil field caser)? Give summary @ -Spoke with nurse practitioner, Dione, with [facility] hospitalist group who accepts admission of the patient for urinary tract infection with culture growth of E. coli. Was smoking cessation discussed for >3mins.? @ -No Was critical care preformed (if so, how long)? @ -No Were there social determinants of health that impacted care today? How? (Homelessness, low income, unemployed, alcoholism, drug addiction, transportation, low edu. Level, literacy, decrease access to med. care, correction, rehab)? @ -No Was there de-escalation of care discussed even if they declined (Discuss DNR or withdrawal of care, Hospice)? DNR status @ -No What co-morbidities impacted this encounter? (DM, HTN, Smoking, COPD, CAD, Cancer, CVA, ARF, Chemo, Hep., AIDS, mental health diagnosis, sleep apnea, morbid obesity)? @ -None Was patient admitted / discharged? Hospital course, mention meds given and route, prescriptions, significant lab abnormalities, going to OR and other pertinent info. @ -Admitted. 79-year-old male with urinary tract infection. On examination there are no acute findings, additionally patient is denying symptoms of abdominal pain, dysuria hematuria or flank pain. Patient is mildly tachycardic on examination with a heart rate of 105, afebrile. Patient is provided with IV fluids pending laboratory results. Patient does have a leukocytosis of 18 and neutophilia of 17, lactate nonelevated. CMP reveals bated BUN of 57 and creatinine 2.08, CRP 14.4. Patient will be admitted to internal medicine for gentle fluid hydration IV antibiotics for urinary tract infection. Discussed with Dr. Pascual Undiagnosed new problem with uncertain prognosis? @ -No Drug Therapy requiring intensive monitoring for toxicity (Heparin, Nitro, Insulin, Cardizem)? @ -No Were any procedures done? @ -No Diagnosis/symptom? @ -Urinary tract infection with growth of E. coli Acute, or Chronic, or Acute on Chronic? @ -Acute Uncomplicated (without systemic symptoms) or Complicated (systemic symptoms)? @ -complicated Side effects of treatment? @ -No Exacerbation, Progression, or Severe Exacerbation? @ -No Poses a threat to life or bodily function? How? (Chest pain, [place], [place], pneumonia, PE, COPD, DKA, ARF, appy, cholecystitis, CVA, Diverticulitis, Homicidal, Suicidal, threat to staff... and all critical care pts) @ -No - Lab Data Result diagrams: 07/23/24 16:26 07/23/24 16:30 Lab Results 07/23/24 07/23/24 07/23/24 Range/Units 16:26 16:26 16:30 WBC 18.5 H (3.8-10.6) k/uL RBC 3.49 L (4.30-5.90) m/uL Hgb 10.3 L (13.0-17.5) gm/dL Hct 31.7 L (39.0-53.0) % MCV 90.8 (80.0-100.0) fL MCH 29.5 (25.0-35.0) pg MCHC 32.4 (31.0-37.0) g/dL RDW 13.3 (11.5-15.5) % Plt Count 363 (150-450) k/uL MPV 8.7 Neutrophils % 92 % Lymphocytes % 3 % Monocytes % 3 % Eosinophils % 0 % Basophils % 0 % Neutrophils # 17.1 H (1.3-7.7) k/uL Lymphocytes # 0.6 L (1.0-4.8) k/uL Monocytes # 0.6 (0-1.0) k/uL Eosinophils # 0.1 (0-0.7) k/uL Basophils # 0.0 (0-0.2) k/uL Sodium 134 L (137-145) mmol/L Potassium 3.6 (3.5-5.1) mmol/L Chloride 105 (98-107) mmol/L Carbon Dioxide 21 L (22-30) mmol/L Anion Gap 8 mmol/L BUN 57 H (9-20) mg/dL Creatinine 2.08 H (0.66-1.25) mg/dL Est GFR (CKD-EPI)AfAm 34 (>60 ml/min/1.73 sqM) Est GFR (CKD-EPI)NonAf 29 (>60 ml/min/1.73 sqM) Glucose 118 H (74-99) mg/dL Plasma Lactic Acid Jacob 0.9 (0.7-2.0) mmol/L Calcium 8.2 L (8.4-10.2) mg/dL Total Bilirubin 1.0 (0.2-1.3) mg/dL AST 24 (17-59) U/L ALT 26 (4-49) U/L Alkaline Phosphatase 78 (38-126) U/L C-Reactive Protein 14.4 H (<1.0) mg/dL Total Protein 5.8 L (6.3-8.2) g/dL Albumin 2.9 L (3.5-5.0) g/dL Disposition Clinical Impression: E. coli UTI (urinary tract infection) Disposition: ADMITTED IP TO THIS [facility] Condition: Good Is patient prescribed a controlled substance at d/c from ED?: No Decision to Admit Reason: Admit from EC Decision Date: 07/23/24 Decision Time: 17:35
[2024-07-23] MEDS: SODIUM CHLORIDE 0.9% 500 ML 500 ML IV STA (16:41)
[2024-07-23 16:50] LABS: Basophils % (A) 0 %; Eosinophils # (A) 0.1 k/uL (0-0.7); Eosinophils % (A) 0 %; HCT 31.7 % (39.0-53.0); HGB 10.3 gm/dL (13.0-17.5); Lymphocytes # (A) 0.6 k/uL (1.0-4.8); Lymphocytes % (A) 3 %; MCH 29.5 pg (25.0-35.0); MCHC 32.4 g/dL (31.0-37.0); MCV 90.8 fL (80.0-100.0); Mean Platelet Volume 8.7; Monocytes # (A) 0.6 k/uL (0-1.0); Monocytes % (A) 3 %; Neutrophils # (A) 17.1 k/uL (1.3-7.7); Neutrophils % (A) 92 %; Platelet Count 363 k/uL (150-450); RBC 3.49 m/uL (4.30-5.90); RDW 13.3 % (11.5-15.5); WBC 18.5 k/uL (3.8-10.6)
[2024-07-23] MEDS: SODIUM CHLORIDE 0.9% 1,000 ML IV STA (16:59)
[2024-07-23] MEDS ORDERED: ONDANSETRON 4 MG/2 ML VIAL IVP PRN (17:35)
[2024-07-23] MEDS ORDERED: NALOXONE 0.4 MG/ML 1 ML VIAL IV PRN (17:35)
[2024-07-23 17:46] LABS: ALT 26 U/L (4-49); AST 24 U/L (17-59); African American GFR (CKD) 34 (>60 ml/min/1.73 sqM); Albumin 2.9 g/dL (3.5-5.0); Alkaline Phosphatase 78 U/L (38-126); Anion Gap 8 mmol/L; Blood Urea Nitrogen 57 mg/dL (9-20); Calcium 8.2 mg/dL (8.4-10.2); Carbon Dioxide 21 mmol/L (22-30); Chloride 105 mmol/L (98-107); Glucose 118 mg/dL (74-99); Non-African American GFR(CKD) 29 (>60 ml/min/1.73 sqM); Potassium 3.6 mmol/L (3.5-5.1); Sodium 134 mmol/L (137-145); Total Protein 5.8 g/dL (6.3-8.2)
[2024-07-23 18:12] LABS: C Reactive Protein 14.4 mg/dL (<1.0)
[2024-07-23 18:54] LABS: Appearance,Urine Turbid (Clear); Bacteria,Urine Many /hpf; Bilirubin,Urine Negative (Negative); Blood,Urine Moderate (Negative); Color,Urine Yellow; Glucose,Urine (UA) Negative (Negative); Ketones,Urine Negative (Negative); Leukocyte Esterase,Urine Large (Negative); Nitrite,Urine Positive (Negative); Protein,Urine 1+ (Negative); RBC,Urine 85 /hpf (0-5); Urobilinogen,Urine <2.0 mg/dL (<2.0); WBC,Urine >182 /hpf (0-5)
[2024-07-23 18:55] LABS: Specific Gravity,Urine 1.009 (1.001-1.035)
[2024-07-23] MEDS: SODIUM CHLORIDE 0.9% 1,000 ML IV SCH (20:00)
[2024-07-23] MEDS ORDERED: QUEtiapine 25 MG TAB PO PRN (21:44)
[2024-07-23 21:54] LABS: ABG Base Excess -5.8 mmol/L; ABG HCO3 17 mmol/L (21-25); ABG Oxygen Saturation 97.5 % (94-97); ABG PCO2 23 mmHg (35-45); ABG PH 7.47 (7.35-7.45); ABG PO2 89 mmHg (83-108); ABG TCO2 17 mmol/L (19-24); Allen Test Performed? Yes
--- NOTE | 2024-07-23 21:57 | XR ---
EXAMINATION TYPE: XR chest 1V portable DATE OF EXAM: 07/23/2024 9:52 PM CLINICAL INDICATION: Male, 79 years old with history of Cardiac; COMPARISON: Chest radiographs from 03/25/2023 TECHNIQUE: XR chest 1V portable Frontal view of the chest. FINDINGS: Lungs/Pleura: There is no evidence of pleural effusion, focal consolidation, or pneumothorax. Pulmonary vascularity: Unremarkable. Heart/mediastinum: Cardiomediastinal silhouette is unremarkable. Musculoskeletal: No acute osseous pathology. Other findings: None Lines/Tubes: IMPRESSION: Similar to prior, No acute cardiopulmonary disease/process.
[2024-07-23] MEDS: ACETAMINOPHEN IV (For NPO) 1,000 MG in EMPTY BAG 1 BAG IVPB STA (22:00)
[2024-07-23] MEDS ORDERED: ACETAMINOPHEN IV (For NPO) 1,000 MG in EMPTY BAG 1 BAG IVPB ONE (22:00)
[2024-07-23] MEDS: ATORVASTATIN 10 MG TAB PO SCH (22:22)
[2024-07-23] MEDS: ACETAMINOPHEN TAB 500 MG TAB PO STA (22:34)
[2024-07-23] MEDS: PIPERACILLIN-TAZOBACTAM 3.375 GM in SODIUM CHLORIDE 0.9% 100 ML IVPB SCH (22:34)
[2024-07-23] MEDS: amLODIPine 5 MG TAB PO SCH (22:35)
[2024-07-23] MEDS: LOSARTAN 50 MG TAB PO SCH (22:35)
[2024-07-23] MEDS: HEPARIN SODIUM,PORCINE 5,000 UNIT/ML 1 ML VIAL SQ SCH (23:11)
[2024-07-23] MEDS: MEROPENEM 1 GM in SODIUM CHLORIDE 0.9% 100 ML IVPB SCH (23:13)
[2024-07-23] MEDS: ACETAMINOPHEN TAB 325 MG TAB PO PRN (23:24)
[2024-07-24 08:19] LABS: ALT 24 U/L (4-49); AST 23 U/L (17-59); African American GFR (CKD) 34 (>60 ml/min/1.73 sqM); Albumin 2.7 g/dL (3.5-5.0); Alkaline Phosphatase 72 U/L (38-126); Anion Gap 8 mmol/L; Blood Urea Nitrogen 52 mg/dL (9-20); Calcium 8.2 mg/dL (8.4-10.2); Carbon Dioxide 20 mmol/L (22-30); Chloride 110 mmol/L (98-107); Globulin 2.8 g/dL; Glucose 123 mg/dL (74-99); Non-African American GFR(CKD) 29 (>60 ml/min/1.73 sqM); Potassium 3.8 mmol/L (3.5-5.1); Sodium 138 mmol/L (137-145); Total Bilirubin 0.9 mg/dL (0.2-1.3); Total Protein 5.5 g/dL (6.3-8.2)
[2024-07-24] MEDS: ASPIRIN 81 MG PO SCH (08:25)
--- NOTE | 2024-07-24 11:16 | US ---
EXAMINATION TYPE: US kidneys/renal and bladder DATE OF EXAM: 07/24/2024 COMPARISON: NONE CLINICAL INDICATION: Male, 79 years old with history of uti and bacteremia; CURTIS, UTI, no pain per pat ient EXAM MEASUREMENTS: Right Kidney:12.8 x 5.2 x 5.3cm Left Kidney: 13.4 x 6.2 x 7.4 cm Right Kidney: Marked Hydronephrosis seen, possible debris within superior calyx Left Kidney: Moderate Hydronephrosis seen, enlarged Bladder: mobile debris within and irregular clip riveter wall. Additional workup recommended. IMPRESSION: 1. Moderate to marked bilateral hydronephrosis 2. Debris within the superior calyx right kidney. 3. Debris within urinary bladder. Some irregular posterior wall may be present. Additional workup rec ommended.
--- NOTE | 2024-07-24 12:45 | P.NPCON ---
History of Present Illness - Reason for Consult acute renal failure - History of Present Illness Patient is an 79-year-old male with history of hypertension who is admitted to the hospital with complaints of mental status changes. According to his patient has been going to the bathroom multiple times and has had frequent urination. He has been staying on the toilet for 1 to 2 hours each time. No history of use of NSAIDs No history of diarrhea nausea or vomiting. History of recent urinary tract infection status posttreatment with Cipro. Blood pressure was low with systolic in the 90s. Patient is maintained on losartan at home. Serum creatinine at 2.0 on admission with previous creatinine 1.8 on 07/19/2024 and 0.6 mg/dL on 02/24/2024. 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), ENLARGED PROSTATE History of Any Multi-Drug Resistant Organisms: None Reported Past Surgical History: Appendectomy Past Anesthesia/Blood Transfusion Reactions: No Reported Reaction Past Psychological History: No Psychological Hx Reported Smoking Status: Current some day smoker Past Alcohol Use History: None Reported Additional Past Alcohol Use History / Comment(s): now smokes 3 cigarettes-since age 16 Past Drug Use History: None Reported - Past Family History Father Family Medical History: Cancer Brother(s) Family Medical History: Cancer Sister(s) Family Medical History: Cancer Medications and Allergies Home Medications Medication Instructions Recorded Confirmed Type Simvastatin 20 mg PO HS 09/28/15 07/23/24 History Aspirin [Adult Low Dose Aspirin EC] 81 mg PO DAILY 07/21/19 07/23/24 History amLODIPine [Norvasc] 5 mg PO HS 07/21/19 07/23/24 History Ciprofloxacin HCl [Cipro] 500 mg PO DIRECTED 07/23/24 07/23/24 History Losartan Potassium 100 mg PO HS 07/23/24 07/23/24 History Allergies Allergy/AdvReac Type Severity Reaction Status Date / Time No Known Allergies Allergy Verified 07/23/24 16:38 Physical Exam Vitals: Vital Signs Temp Pulse Pulse Resp BP BP Pulse Ox 07/24/24 07:05 97.5 F L 72 18 119/74 97 07/24/24 02:00 98.2 F 74 18 103/65 95 07/23/24 23:51 98.9 F 07/23/24 23:50 100.4 F H 93 17 93/54 94 L 07/23/24 22:04 99.1 F 07/23/24 20:00 89 20 136/78 07/23/24 15:46 98.5 F 105 H 18 112/68 96 Intake and Output 07/23/24 07/24/24 07/24/24 22:59 06:59 14:59 Other: Voiding Method Toilet # Voids 0 Weight 65.771 kg 65.771 kg Patient is awake, comfortable, no acute distress. Examination of the heart S1 and S2 Examination of the lungs decreased breath sounds at the bases Abdomen is soft nontender Examination of lower extremities shows no significant edema TOURIST AGENT exam shows patient is moving all 4 extremities. Results - Lab Results Most recent lab results ABG pH 7.47 (7.35-7.45) H 07/23/24 21:51 ABG pCO2 23 mmHg (35-45) L 07/23/24 21:51 ABG pO2 89 mmHg (83-108) 07/23/24 21:51 ABG HCO3 17 mmol/L (21-25) L 07/23/24 21:51 ABG O2 Saturation 97.5 % (94-97) H 07/23/24 21:51 Calcium 8.2 mg/dL (8.4-10.2) L 07/24/24 07:19 07/23/24 16:26 07/24/24 07:19 Assessment and Plan Assessment: 1. Acute kidney injury, ATN secondary to hypotension. Rule out obstructive uropathy. Check ultrasound of the kidneys. UA shows 1+ protein and WBCs more than 182 2. Pyuria rule out UTI 3. History of hypertension maintained on losartan prior to admission. 4. Recent diagnosis of UTI started on Cipro yesterday. Plan: Continue with IV fluids Continue to hold losartan Hold Norvasc as well Check ultrasound of the kidneys Continue empiric antibiotics Follow-up on urine cultures Repeat labs in a.m. Thank you for the consultation. We will continue to follow the patient with you during his hospitalization.
[2024-07-24 13:16] LABS: HGB 9.6 g/dL (13.0-17.0); MCH 29.5 pg (27.0-32.0); MCV 92.3 FL (80.0-97.0); Mean Platelet Volume 12.4 FL (9.5-12.2); NRBC Per 100 WBC 0 X 10*3/uL (0.00-0.01); Platelet Count 113 X 10*3/uL (140-440); RBC 3.25 X 10*6/uL (4.40-5.60); RDW 14.1 % (11.5-14.5); WBC 25.56 X 10*3/uL (4.50-10.00)
[2024-07-24 13:45] LABS: Basophils # (A) 0.05 X 10*3/uL (0.00-0.10); Basophils % (A) 0.2 %; Eosinophils # (A) 0 X 10*3/uL (0.04-0.35); Eosinophils % (A) 0 %; Lymphocytes # (A) 1.17 X 10*3/uL (0.90-5.00); Lymphocytes % (A) 4.6 %; Monocytes % (A) 3.5 %; Neutrophils # (A) 23.24 X 10*3/uL (1.80-7.70); Neutrophils % (A) 90.9 %
[2024-07-24 14:45] LABS: Appearance,Urine Cloudy (Clear); Bacteria,Urine Moderate /hpf; Bilirubin,Urine Negative (Negative); Blood,Urine Small (Negative); Color,Urine Colorless; Glucose,Urine (UA) Negative (Negative); Ketones,Urine Negative (Negative); Leukocyte Esterase,Urine Large (Negative); Nitrite,Urine Positive (Negative); PH, Urine 5.5 (5.0-8.0); Protein,Urine Trace (Negative); RBC,Urine 3 /hpf (0-5); Specific Gravity,Urine 1.009 (1.001-1.035); Urobilinogen,Urine <2.0 mg/dL (<2.0); WBC,Urine >182 /hpf (0-5)
--- NOTE | 2024-07-24 16:37 | P.HPIM ---
History of Present Illness H&P Date: 07/24/24 History of present illness: 79-year-old male patient with past medical history significant for hypertension, hyperlipidemia, history of BPH, who was brought to the ED by his for evaluation of UTI. Patient was advised by his PCP Dr. Gallegos to come to the ED for complicated UTI. Patient complained of lower abdominal pain, over the bladder. Patient denied any flank pain nausea vomiting. Patient denied any fever or chills. Patient is not a good historian. Patient denied any headache, sore throat, productive cough, chest pain, palpitation, productive cough, shortness of breath, weakness or numbness of extremities, abdominal pain. Patient had been on multiple antibiotics over the past few weeks. Urine culture 07/20 grew ESBL. On presentation patient had a fever of 100.4, pulse rate 93, respiratory rate 17, blood pressure 93/54, saturating 94% on room air. Labs: WBCs 25.56, Hemoglobin 9.6, platelets 113, BMP remarkable for creatinine 2.08, BUN 52. UA positive with large amount of WBCs and leukocyte Estrace. Urine culture 07/20 grew ESBL. REVIEW OF SYSTEMS: CONSTITUTIONAL: No fever, no malaise, no fatigue. HEENT: No recent visual problems or hearing problems. Denied any sore throat. CARDIOVASCULAR: No chest pain, orthopnea, PND, no palpitations, no syncope. PULMONARY: No shortness of breath, no cough, no hemoptysis. GASTROINTESTINAL: No diarrhea, no nausea, no vomiting, no abdominal pain. NEUROLOGICAL: No headaches, no weakness, no numbness. HEMATOLOGICAL: Denies any bleeding or petechiae. GENITOURINARY: Denies any burning micturition, frequency, or urgency. MUSCULOSKELETAL/RHEUMATOLOGICAL: Denies any joint pain, swelling, or any muscle pain. ENDOCRINE: Denies any polyuria or polydipsia. The rest of the 14-point review of systems is negative. PHYSICAL EXAMINATION: GENERAL: The patient is A&O x3, NAD HEENT: EOMI, Sclerae anicteric, Moist Mucous membranes Neck: Supple, Non tender, No JVD PULMONARY: Equal breath souds B/L, No wheezing, No crackles. CARDIOVASCULAR: S1, S2 present. No murmurs, rubs, or gallops. ABDOMEN: Soft, nontender, nondistended, normoactive bowel sounds. No guarding or rebound tenderness. MUSCULOSKELETAL: No edema, No cyanosis. No clubbing. Normal ROM. Intact peripheral pulses. EXTREMITIES: No cyanosis, clubbing, or pedal edema. NEUROLOGICAL: CN 2-12 grossly intact. No FND Assessment and plan: Complicated UTI: ESBL: Sepsis: Hypotension: Acute metabolic encephalopathy: Sent in by PCP for evaluation of complicated UTI, complaint of frequency, suprapubic pain, altered mental status. Urine culture 07/20 growing ESBL/E. coli Current meropenem Blood cultures. Hold antihypertensives. Nephrology and infectious disease consulted Acute kidney injury: Secondary to above Monitor for retention, Julio catheter in place Hold losartan Hold Norvasc due to low blood pressure Ultrasound renal IV fluids Nephrology consulted DVT prophylaxis Substance heparin Monitor vital signs and labs Continue telemetry monitoring Labs and medication were reviewed. Continue same treatment. Resume home medication. Further recommendations as per clinical course of the patient Dictation was produced using [employer] dictation software. please excuse any grammatical, word or spelling errors. 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), ENLARGED PROSTATE History of Any Multi-Drug Resistant Organisms: None Reported Past Surgical History: Appendectomy Past Anesthesia/Blood Transfusion Reactions: No Reported Reaction Past Psychological History: No Psychological Hx Reported Smoking Status: Current some day smoker Past Alcohol Use History: None Reported Additional Past Alcohol Use History / Comment(s): now smokes 3 cigarettes-since age 16 Past Drug Use History: None Reported - Past Family History Father Family Medical History: Cancer Brother(s) Family Medical History: Cancer Sister(s) Family Medical History: Cancer Medications and Allergies Home Medications Medication Instructions Recorded Confirmed Type Simvastatin 20 mg PO HS 09/28/15 07/23/24 History Aspirin [Adult Low Dose Aspirin EC] 81 mg PO DAILY 07/21/19 07/23/24 History amLODIPine [Norvasc] 5 mg PO HS 07/21/19 07/23/24 History Ciprofloxacin HCl [Cipro] 500 mg PO DIRECTED 07/23/24 07/23/24 History Losartan Potassium 100 mg PO HS 07/23/24 07/23/24 History Allergies Allergy/AdvReac Type Severity Reaction Status Date / Time No Known Allergies Allergy Verified 07/23/24 16:38 Physical Exam Vitals: Vital Signs Temp Pulse Pulse Resp BP BP Pulse Ox 07/24/24 14:20 97.3 F L 70 18 120/71 100 07/24/24 07:05 97.5 F L 72 18 119/74 97 07/24/24 02:00 98.2 F 74 18 103/65 95 07/23/24 23:51 98.9 F 07/23/24 23:50 100.4 F H 93 17 93/54 94 L 07/23/24 22:04 99.1 F 07/23/24 20:00 89 20 136/78 Intake and Output 07/24/24 07/24/24 07/24/24 06:59 14:59 22:59 Other: # Voids 0 Weight 65.771 kg Results CBC & Chem 7: 07/24/24 07:19 07/24/24 07:19 Labs: Abnormal Lab Results - Last 24 Hours (Table) 07/23/24 07/23/24 07/23/24 Range/Units 16:26 16:30 18:14 WBC 18.5 H (3.8-10.6) k/uL RBC 3.49 L (4.30-5.90) m/uL Hgb 10.3 L (13.0-17.5) gm/dL Hct 31.7 L (39.0-53.0) % Plt Count (140-440) X 10*3/uL MPV (9.5-12.2) FL Immature Gran # (0.00-0.04) X 10*3/uL Neutrophils # 17.1 H (1.3-7.7) k/uL Lymphocytes # 0.6 L (1.0-4.8) k/uL Eosinophils # (0.04-0.35) X 10*3/uL ABG pH (7.35-7.45) ABG pCO2 (35-45) mmHg ABG HCO3 (21-25) mmol/L ABG Total CO2 (19-24) mmol/L ABG O2 Saturation (94-97) % Sodium 134 L (137-145) mmol/L Chloride (98-107) mmol/L Carbon Dioxide 21 L (22-30) mmol/L BUN 57 H (9-20) mg/dL Creatinine 2.08 H (0.66-1.25) mg/dL Glucose 118 H (74-99) mg/dL Calcium 8.2 L (8.4-10.2) mg/dL C-Reactive Protein 14.4 H (<1.0) mg/dL Total Protein 5.8 L (6.3-8.2) g/dL Albumin 2.9 L (3.5-5.0) g/dL Urine Protein 1+ H (Negative) Urine Blood Moderate H (Negative) Ur Leukocyte Esterase Large H (Negative) Urine RBC 85 H (0-5) /hpf Urine WBC >182 H (0-5) /hpf Urine WBC Clumps Many H (None) /hpf Urine Bacteria Many H (None) /hpf 07/23/24 07/24/24 07/24/24 Range/Units 21:51 07:19 07:19 WBC 25.56 H (3.8-10.6) k/uL RBC 3.25 L (4.30-5.90) m/uL Hgb 9.6 L (13.0-17.5) gm/dL Hct 30.0 L (39.0-53.0) % Plt Count 113 L (140-440) X 10*3/uL MPV 12.4 H (9.5-12.2) FL Immature Gran # 0.20 H (0.00-0.04) X 10*3/uL Neutrophils # 23.24 H (1.3-7.7) k/uL Lymphocytes # (1.0-4.8) k/uL Eosinophils # 0 L (0.04-0.35) X 10*3/uL ABG pH 7.47 H (7.35-7.45) ABG pCO2 23 L (35-45) mmHg ABG HCO3 17 L (21-25) mmol/L ABG Total CO2 17 L (19-24) mmol/L ABG O2 Saturation 97.5 H (94-97) % Sodium (137-145) mmol/L Chloride 110 H (98-107) mmol/L Carbon Dioxide 20 L (22-30) mmol/L BUN 52 H (9-20) mg/dL Creatinine 2.08 H (0.66-1.25) mg/dL Glucose 123 H (74-99) mg/dL Calcium 8.2 L (8.4-10.2) mg/dL C-Reactive Protein (<1.0) mg/dL Total Protein 5.5 L (6.3-8.2) g/dL Albumin 2.7 L (3.5-5.0) g/dL Urine Protein (Negative) Urine Blood (Negative) Ur Leukocyte Esterase (Negative) Urine RBC (0-5) /hpf Urine WBC (0-5) /hpf Urine WBC Clumps (None) /hpf Urine Bacteria (None) /hpf 07/24/24 Range/Units 13:43 WBC (3.8-10.6) k/uL RBC (4.30-5.90) m/uL Hgb (13.0-17.5) gm/dL Hct (39.0-53.0) % Plt Count (140-440) X 10*3/uL MPV (9.5-12.2) FL Immature Gran # (0.00-0.04) X 10*3/uL Neutrophils # (1.3-7.7) k/uL Lymphocytes # (1.0-4.8) k/uL Eosinophils # (0.04-0.35) X 10*3/uL ABG pH (7.35-7.45) ABG pCO2 (35-45) mmHg ABG HCO3 (21-25) mmol/L ABG Total CO2 (19-24) mmol/L ABG O2 Saturation (94-97) % Sodium (137-145) mmol/L Chloride (98-107) mmol/L Carbon Dioxide (22-30) mmol/L BUN (9-20) mg/dL Creatinine (0.66-1.25) mg/dL Glucose (74-99) mg/dL Calcium (8.4-10.2) mg/dL C-Reactive Protein (<1.0) mg/dL Total Protein (6.3-8.2) g/dL Albumin (3.5-5.0) g/dL Urine Protein Trace H (Negative) Urine Blood Small H (Negative) Ur Leukocyte Esterase Large H (Negative) Urine RBC (0-5) /hpf Urine WBC >182 H (0-5) /hpf Urine WBC Clumps Rare H (None) /hpf Urine Bacteria Moderate H (None) /hpf Thrombosis Risk Factor Assmnt - Choose All That Apply Any of the Below Risk Factors Present?: No Other Risk Factors: Yes Each Risk Factor Represents 3 Points: Age 75 years or older Other congenital or acquired thrombophilia - If yes, enter type in comment: No Thrombosis Risk Factor Assessment Total Risk Factor Score: 3 Thrombosis Risk Factor Assessment Level: Moderate Risk
--- NOTE | 2024-07-24 21:04 | P.CONS ---
History of Present Illness - Reason for Consult Consult date: 07/24/24 ESBL UTI Requesting physician: Dione King - Chief Complaint Urinary urgency and fever x few days - History of Present Illness Patient is a 79-year-old male with a past medical history significant for hypertension hyperlipidemia, prostate disorder history of recurrent UTI apparently the patient did have outpatient urine culture done which came back positive with a ESBL E. coli for the patient was advised to go to the hospital for IV antibiotic therapy patient apparently did have some urinary symptoms of urgency and frequency did have some nausea and decreased oral intake but no vomiting and no high-grade fever reported by the at the bedside patient himself denies having any symptoms no headache chest pain shortness of breath or cough and no diarrhea on presentation to the hospital the patient was afebrile subsequently did spike a fever 100.4 F patient was not tachycardic hypotensive or hypoxic he did have white count of 18.5 which is up to 25.56 today BUN and creatinine has been elevated liver isms are normal CRP is elevated urine has been positive patient was started on meropenem infectious disease was consulted for further management of antibiotic therapy Review of Systems Positive point and negatives has been mentioned in the HPI, complete review of systems was performed and all other systems are negative 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), ENLARGED PROSTATE History of Any Multi-Drug Resistant Organisms: None Reported Past Surgical History: Appendectomy Past Anesthesia/Blood Transfusion Reactions: No Reported Reaction Past Psychological History: No Psychological Hx Reported Smoking Status: Current some day smoker Past Alcohol Use History: None Reported Additional Past Alcohol Use History / Comment(s): now smokes 3 cigarettes-since age 16 Past Drug Use History: None Reported - Past Family History Father Family Medical History: Cancer Brother(s) Family Medical History: Cancer Sister(s) Family Medical History: Cancer Medications and Allergies Home Medications Medication Instructions Recorded Confirmed Type Simvastatin 20 mg PO HS 09/28/15 07/23/24 History Aspirin [Adult Low Dose Aspirin EC] 81 mg PO DAILY 07/21/19 07/23/24 History amLODIPine [Norvasc] 5 mg PO HS 07/21/19 07/23/24 History Ciprofloxacin HCl [Cipro] 500 mg PO DIRECTED 07/23/24 07/23/24 History Losartan Potassium 100 mg PO HS 07/23/24 07/23/24 History Allergies Allergy/AdvReac Type Severity Reaction Status Date / Time No Known Allergies Allergy Verified 07/23/24 16:38 Physical Exam Vitals: Vital Signs Temp Pulse Pulse Resp BP BP Pulse Ox 07/24/24 02:00 98.2 F 74 18 103/65 95 07/23/24 23:51 98.9 F 07/23/24 23:50 100.4 F H 93 17 93/54 94 L 07/23/24 22:04 99.1 F 07/23/24 20:00 89 20 136/78 07/23/24 15:46 98.5 F 105 H 18 112/68 96 Intake and Output 07/23/24 07/24/24 07/24/24 22:59 06:59 14:59 Other: Voiding Method Toilet # Voids 0 Weight 65.771 kg 65.771 kg GENERAL DESCRIPTION: Elderly male lying in bed, no distress. No tachypnea or accessory muscle of respiration use. HEENT: Shows Pallor , no scleral icterus. Oral mucous membrane is dry. No pharyngeal erythema or thrush NECK: Trachea central, no thyromegaly. LUNGS: Unlabored breathing. Clear to auscultation anteriorly. No wheeze or crackle. HEART: S1, S2, regular rate and rhythm. No loud murmur ABDOMEN: Soft, no tenderness , guarding or rigidity, no organomegaly EXTREMITIES: No edema of feet. SKIN: No rash, no masses palpable. NEUROLOGICAL: The patient is awake, alert, oriented x3, mood and affect normal. Results CBC & Chem 7: 07/24/24 07:19 07/24/24 07:19 Labs: Abnormal Lab Results - Last 24 Hours (Table) 07/23/24 07/23/24 07/23/24 Range/Units 16:26 16:30 18:14 WBC 18.5 H (3.8-10.6) k/uL RBC 3.49 L (4.30-5.90) m/uL Hgb 10.3 L (13.0-17.5) gm/dL Hct 31.7 L (39.0-53.0) % Neutrophils # 17.1 H (1.3-7.7) k/uL Lymphocytes # 0.6 L (1.0-4.8) k/uL ABG pH (7.35-7.45) ABG pCO2 (35-45) mmHg ABG HCO3 (21-25) mmol/L ABG Total CO2 (19-24) mmol/L ABG O2 Saturation (94-97) % Sodium 134 L (137-145) mmol/L Carbon Dioxide 21 L (22-30) mmol/L BUN 57 H (9-20) mg/dL Creatinine 2.08 H (0.66-1.25) mg/dL Glucose 118 H (74-99) mg/dL Calcium 8.2 L (8.4-10.2) mg/dL C-Reactive Protein 14.4 H (<1.0) mg/dL Total Protein 5.8 L (6.3-8.2) g/dL Albumin 2.9 L (3.5-5.0) g/dL Urine Protein 1+ H (Negative) Urine Blood Moderate H (Negative) Ur Leukocyte Esterase Large H (Negative) Urine RBC 85 H (0-5) /hpf Urine WBC >182 H (0-5) /hpf Urine WBC Clumps Many H (None) /hpf Urine Bacteria Many H (None) /hpf 07/23/24 Range/Units 21:51 WBC (3.8-10.6) k/uL RBC (4.30-5.90) m/uL Hgb (13.0-17.5) gm/dL Hct (39.0-53.0) % Neutrophils # (1.3-7.7) k/uL Lymphocytes # (1.0-4.8) k/uL ABG pH 7.47 H (7.35-7.45) ABG pCO2 23 L (35-45) mmHg ABG HCO3 17 L (21-25) mmol/L ABG Total CO2 17 L (19-24) mmol/L ABG O2 Saturation 97.5 H (94-97) % Sodium (137-145) mmol/L Carbon Dioxide (22-30) mmol/L BUN (9-20) mg/dL Creatinine (0.66-1.25) mg/dL Glucose (74-99) mg/dL Calcium (8.4-10.2) mg/dL C-Reactive Protein (<1.0) mg/dL Total Protein (6.3-8.2) g/dL Albumin (3.5-5.0) g/dL Urine Protein (Negative) Urine Blood (Negative) Ur Leukocyte Esterase (Negative) Urine RBC (0-5) /hpf Urine WBC (0-5) /hpf Urine WBC Clumps (None) /hpf Urine Bacteria (None) /hpf Assessment and Plan (1) Sepsis Current Visit: Yes Status: Acute Code(s): A41.9 - SEPSIS, UNSPECIFIED ORGANISM SNOMED Code(s): 24353295 (2) UTI (urinary tract infection) Current Visit: Yes Status: Acute Code(s): N39.0 - URINARY TRACT INFECTION, SITE NOT SPECIFIED SNOMED Code(s): 98866164 (3) Infection due to ESBL-producing Escherichia coli Current Visit: Yes Status: Acute Code(s): A49.8 - OTHER BACTERIAL INFECTIONS OF UNSPECIFIED SITE; Z16.12 - EXTENDED SPECTRUM BETA LACTAMASE (ESBL) RESISTANCE SNOMED Code(s): 734396348 Plan: 1patient presented to hospital with sepsis in this patient who did have a fever elevated white count source is urinary tract infection with a urine culture done in the outpatient setting positive for ESBL E. coli likely in the infected pathogen failing outpatient oral antibiotic therapy. 2patient also have elevated creatinine concerning for possible obstructive uropathy. 3we will check ultrasound again in the bladder area. 4meropenem 1 g every 12 hours dosages for the kidney function, patient likely to midline and outpatient IV antibiotic therapy at the bedside questions were answered We will follow on clinical condition and cultures to further adjust medication if needed Thank you for this consultation we will follow the patient along with you Dictation was produced using [employer] dictation software. please excuse any grammatical, word or spelling errors. Time with Patient: Greater than 30
[2024-07-25 08:09] LABS: Basophils % (A) 0 %; Eosinophils # (A) 0.1 k/uL (0-0.7); Eosinophils % (A) 0 %; Lymphocytes % (A) 6 %; MCH 30.3 pg (25.0-35.0); MCHC 33.4 g/dL (31.0-37.0); MCV 90.9 fL (80.0-100.0); Monocytes # (A) 0.9 k/uL (0-1.0); Monocytes % (A) 6 %; Neutrophils # (A) 13.3 k/uL (1.3-7.7); Neutrophils % (A) 86 %; RBC 3.96 m/uL (4.30-5.90); RDW 13.4 % (11.5-15.5); WBC 15.5 k/uL (3.8-10.6)
[2024-07-25 08:41] LABS: African American GFR (CKD) 60 (>60 ml/min/1.73 sqM); Anion Gap 7 mmol/L; Blood Urea Nitrogen 32 mg/dL (9-20); Calcium 8.2 mg/dL (8.4-10.2); Carbon Dioxide 20 mmol/L (22-30); Chloride 110 mmol/L (98-107); Glucose 115 mg/dL (74-99); Non-African American GFR(CKD) 52 (>60 ml/min/1.73 sqM); Potassium 3.7 mmol/L (3.5-5.1); Sodium 137 mmol/L (137-145)
--- NOTE | 2024-07-25 12:05 | P.PN ---
Subjective patient is seen for follow-up for acute kidney injury. She associated with hypotension an obstructive uropathy. Currently with indwelling Julio catheter. Urine is noted to be bloody. Serum creatinine improved to 1.28 today. no other complaints today. Objective - Vital Signs Vital signs: Vital Signs Temp 98.1 F 07/25/24 06:55 Pulse 85 07/25/24 06:55 Resp 18 07/25/24 06:55 BP 132/85 07/25/24 06:55 Pulse Ox 95 07/25/24 06:55 FiO2 Intake & Output 07/24/24 07/25/24 07/25/24 18:59 06:59 18:59 Intake Total 900 Output Total 1550 3400 Balance -1550 -2500 Intake: Intake, IV Titration 900 Amount Sodium Chloride 0.9% 1, 900 000 ml @ 75 mls/hr IV . [id number] [facility] Rx#:[id number] Output: Urine 1550 3400 Uretheral (Julio) 1550 Other: Voiding Method Indwelling Catheter Indwelling Catheter # Voids 1 - Exam Patient is awake, comfortable, no acute distress. Examination of the heart S1 and S2 Examination of the lungs decreased breath sounds at the bases Abdomen is soft nontender Examination of lower extremities shows no significant edema LENS GENERATOR exam shows patient is moving all 4 extremities. - Labs CBC & Chem 7: 07/25/24 06:09 07/25/24 06:09 Labs: Abnormal Lab Results - Last 24 Hours (Table) 07/24/24 07/24/24 07/25/24 Range/Units 07:19 13:43 06:09 WBC 25.56 H 15.5 H (4.50-10.00) X 10*3/uL RBC 3.25 L 3.96 L (4.40-5.60) X 10*6/uL Hgb 9.6 L 12.0 L (13.0-17.0) g/dL Hct 30.0 L 36.0 L (39.6-50.0) % Plt Count 113 L (140-440) X 10*3/uL MPV 12.4 H (9.5-12.2) FL Immature Gran # 0.20 H (0.00-0.04) X 10*3/uL Neutrophils # 23.24 H 13.3 H (1.80-7.70) X 10*3/uL Eosinophils # 0 L (0.04-0.35) X 10*3/uL Chloride (98-107) mmol/L Carbon Dioxide (22-30) mmol/L BUN (9-20) mg/dL Creatinine (0.66-1.25) mg/dL Glucose (74-99) mg/dL Calcium (8.4-10.2) mg/dL Urine Protein Trace H (Negative) Urine Blood Small H (Negative) Ur Leukocyte Esterase Large H (Negative) Urine WBC >182 H (0-5) /hpf Urine WBC Clumps Rare H (None) /hpf Urine Bacteria Moderate H (None) /hpf 07/25/24 Range/Units 06:09 WBC (4.50-10.00) X 10*3/uL RBC (4.40-5.60) X 10*6/uL Hgb (13.0-17.0) g/dL Hct (39.6-50.0) % Plt Count (140-440) X 10*3/uL MPV (9.5-12.2) FL Immature Gran # (0.00-0.04) X 10*3/uL Neutrophils # (1.80-7.70) X 10*3/uL Eosinophils # (0.04-0.35) X 10*3/uL Chloride 110 H (98-107) mmol/L Carbon Dioxide 20 L (22-30) mmol/L BUN 32 H (9-20) mg/dL Creatinine 1.28 H (0.66-1.25) mg/dL Glucose 115 H (74-99) mg/dL Calcium 8.2 L (8.4-10.2) mg/dL Urine Protein (Negative) Urine Blood (Negative) Ur Leukocyte Esterase (Negative) Urine WBC (0-5) /hpf Urine WBC Clumps (None) /hpf Urine Bacteria (None) /hpf Microbiology - Last 24 Hours (Table) 07/23/24 22:37 Blood Culture - Preliminary Blood Assessment and Plan Assessment: 1. Acute kidney injury, ATN secondary to hypotension and obstructive uropathy. Ultrasound shows bilateral hydronephrosis. UA shows 1+ protein and WBCs more than 182 2. Pyuria rule out UTI 3. History of hypertension maintained on losartan prior to admission. 4. Recent diagnosis of UTI started on Cipro 1 day prior to admission. 5. Hematuria secondary to bladder decompression. Plan: Continue with IV fluids Continue to hold losartan continue with Julio catheter. Monitor for postobstructive diuresis.
--- NOTE | 2024-07-25 15:48 | P.PN ---
Subjective Progress Note Date: 07/25/24 Principal diagnosis: Reason for follow-up is complicated UTI Patient is a 79-year-old male with a past medical history significant for hypertension hyperlipidemia, prostate disorder history of recurrent UTI apparently the patient did have outpatient urine culture done which came back positive with a ESBL E. coli for the patient was advised to go to the hospital for IV antibiotic therapy. On today's evaluation that is 07/25/2024,the patient remains to be afebrile, p atient is on room air not requiring supplemental oxygen and denies any shortness of breath no chest pain or cough.Patient denies having any nausea or vomiting, no abdominal pain and no diarrhea has been reported. The patient white count is down to 15.5 creatinine is 1.2 8 repeat blood urine cultures pending ultrasound with moderate to marked bilateral hydronephrosis Objective - Vital Signs Vital signs: Vital Signs Temp 98.1 F 07/25/24 06:55 Pulse 85 07/25/24 06:55 Resp 18 07/25/24 06:55 BP 132/85 07/25/24 06:55 Pulse Ox 95 07/25/24 06:55 FiO2 Intake & Output 07/24/24 07/25/24 07/25/24 18:59 06:59 18:59 Intake Total 900 Output Total 1550 3400 Balance -1550 -2500 Intake: Intake, IV Titration 900 Amount Sodium Chloride 0.9% 1, 900 000 ml @ 75 mls/hr IV . [id number] [facility] Rx#:[id number] Output: Urine 1550 3400 Uretheral (Julio) 1550 Other: Voiding Method Indwelling Catheter Indwelling Catheter # Voids 1 - Exam GENERAL DESCRIPTION: An elderly male lying in bed in no distress RESPIRATORY SYSTEM: Unlabored breathing , decreased breath sounds at bases HEART: S1 S2 regular rate and rhythm , ABDOMEN: Soft , no tenderness EXTREMITIES: No edema feet - Labs CBC & Chem 7: 07/25/24 06:09 07/25/24 06:09 Labs: Abnormal Lab Results - Last 24 Hours (Table) 07/25/24 07/25/24 Range/Units 06:09 06:09 WBC 15.5 H (3.8-10.6) k/uL RBC 3.96 L (4.30-5.90) m/uL Hgb 12.0 L (13.0-17.5) gm/dL Hct 36.0 L (39.0-53.0) % Neutrophils # 13.3 H (1.3-7.7) k/uL Chloride 110 H (98-107) mmol/L Carbon Dioxide 20 L (22-30) mmol/L BUN 32 H (9-20) mg/dL Creatinine 1.28 H (0.66-1.25) mg/dL Glucose 115 H (74-99) mg/dL Calcium 8.2 L (8.4-10.2) mg/dL Microbiology - Last 24 Hours (Table) 07/23/24 22:37 Blood Culture - Preliminary Blood Assessment and Plan (1) Sepsis Current Visit: Yes Status: Acute Code(s): A41.9 - SEPSIS, UNSPECIFIED ORGANISM SNOMED Code(s): 90193019 (2) UTI (urinary tract infection) Current Visit: Yes Status: Acute Code(s): N39.0 - URINARY TRACT INFECTION, SITE NOT SPECIFIED SNOMED Code(s): 23995662 (3) Infection due to ESBL-producing Escherichia coli Current Visit: Yes Status: Acute Code(s): A49.8 - OTHER BACTERIAL INFECTIONS OF UNSPECIFIED SITE; Z16.12 - EXTENDED SPECTRUM BETA LACTAMASE (ESBL) RESISTANCE SNOMED Code(s): 105454787 Plan: 1patient presented to hospital with sepsis in this patient who did have a fever elevated white count source is urinary tract infection with a urine culture done in the outpatient setting positive for ESBL E. coli likely in the infected pathogen failing outpatient oral antibiotic therapy. 2patient also have elevated creatinine concerning for possible obstructive uropathy which has been confirmed on abdominal ultrasound urology has been consulted. 3patient to continuemeropenem 1 g every 12 hours dosages adjusted for the kidney function, patient likely to midline and outpatient IV antibiotic therapy discussed with the Dictation was produced using [employer] dictation software. please excuse any grammatical, word or spelling errors. Time with Patient: Less than 30
--- NOTE | 2024-07-25 15:51 | P.PN ---
Subjective Progress Note Date: 07/25/24 Interval History: 79-year-old male patient with past medical history significant for hypertension, hyperlipidemia, history of BPH, who was brought to the ED by his for evaluation of UTI. Patient was advised by his PCP Dr. Gallegos to come to the ED for complicated UTI. Patient complained of lower abdominal pain, over the bladder. Patient denied any flank pain nausea vomiting. Patient denied any f ever or chills. Patient is not a good historian. Patient denied any headache, sore throat, productive cough, chest pain, palpitation, productive cough, shortness of breath, weakness or numbness of extremities, abdominal pain. Patient had been on multiple antibiotics over the past few weeks. Urine culture 07/20 grew ESBL. On presentation patient had a fever of 100.4, pulse rate 93, respiratory rate 17, blood pressure 93/54, saturating 94% on room air. Labs: WBCs 25.56, Hemoglobin 9.6, platelets 113, BMP remarkable for creatinine 2.08, BUN 52. UA positive with large amount of WBCs and leukocyte Estrace. Urine culture 07/20 grew ESBL. 07/25--patient was seen and examined today. at bedside. reported that patient does have dementia at baseline, patient appears to be at baseline per . Ultrasound renal showed moderate to marked bilateral hydronephrosis, patient currently on meropenem, infectious disease and urology following. WBCs trending down, creatinine improving. Urology consulted. Assessment and plan: Complicated UTI: ESBL: Sepsis: Hypotension: Acute metabolic encephalopathy: Resolved Probable dementia: Sent in by PCP for evaluation of complicated UTI, complaint of frequency, suprapubic pain, altered mental status. Urine culture 07/20 growing ESBL/E. coli Current meropenem Blood cultures. Hold antihypertensives. Nephrology and infectious disease consulted Acute kidney injury: Bilateral hydronephrosis: Secondary to above Monitor for retention, Julio catheter in place Hold losartan Hold Norvasc due to low blood pressure Ultrasound renal--moderate to marked bilateral hydronephrosis. IV fluids Nephrology consulted Urology consulted. DVT prophylaxis Substance heparin Monitor vital signs and labs Continue telemetry monitoring Labs and medication were reviewed. Continue same treatment. Resume home medication. Further recommendations as per clinical course of the patient PHYSICAL EXAMINATION: GENERAL: The patient is A&O. NAD HEENT: EOMI, Sclerae anicteric, Moist Mucous membranes Neck: Supple, Non tender, No JVD PULMONARY: Equal breath souds B/L, No wheezing, No crackles. CARDIOVASCULAR: S1, S2 present. No murmurs, rubs, or gallops. ABDOMEN: Soft, nontender, nondistended, normoactive bowel sounds. No guarding or rebound tenderness. MUSCULOSKELETAL: No edema, No cyanosis. No clubbing. Normal ROM. Intact peripheral pulses. EXTREMITIES: No cyanosis, clubbing, or pedal edema. NEUROLOGICAL: CN 2-12 grossly intact. No FND Skin: No Rash REVIEW OF SYSTEMS: CONSTITUTIONAL: No fever or chills. CARDIOVASCULAR: No chest pain, palpitations or syncope. PULMONARY: No shortness of breath, no cough, sore throat. GASTROINTESTINAL: No nausea, vomiting, diarrhea, abdominal pain. : No Dysuria, urgency, frequency. Extremities: No edema. NEUROLOGICAL: No headaches, no weakness, or numbness Dictation was produced using [employer] dictation software. please excuse any grammatical, word or spelling errors. Objective - Vital Signs Vital signs: Vital Signs Temp 98.1 F 07/25/24 06:55 Pulse 85 07/25/24 06:55 Resp 18 07/25/24 06:55 BP 132/85 07/25/24 06:55 Pulse Ox 95 07/25/24 06:55 FiO2 Intake & Output 07/24/24 07/25/24 07/25/24 18:59 06:59 18:59 Intake Total 900 Output Total 1550 3400 Balance -1550 -2500 Intake: Intake, IV Titration 900 Amount Sodium Chloride 0.9% 1, 900 000 ml @ 75 mls/hr IV . [id number] [facility] Rx#:[id number] Output: Urine 1550 3400 Uretheral (Julio) 1550 Other: Voiding Method Indwelling Catheter Indwelling Catheter # Voids 1 - Labs CBC & Chem 7: 07/25/24 06:09 07/25/24 06:09 Labs: Abnormal Lab Results - Last 24 Hours (Table) 07/25/24 07/25/24 Range/Units 06:09 06:09 WBC 15.5 H (3.8-10.6) k/uL RBC 3.96 L (4.30-5.90) m/uL Hgb 12.0 L (13.0-17.5) gm/dL Hct 36.0 L (39.0-53.0) % Neutrophils # 13.3 H (1.3-7.7) k/uL Chloride 110 H (98-107) mmol/L Carbon Dioxide 20 L (22-30) mmol/L BUN 32 H (9-20) mg/dL Creatinine 1.28 H (0.66-1.25) mg/dL Glucose 115 H (74-99) mg/dL Calcium 8.2 L (8.4-10.2) mg/dL Microbiology - Last 24 Hours (Table) 07/23/24 22:37 Blood Culture - Preliminary Blood
--- NOTE | 2024-07-26 07:00 | P.GSCN ---
History of Present Illness Consult date: 07/25/24 Reason for Consult: Hydronephrosis, UTI Requesting physician: Kalyn Jay History of present illness: The patient is an 79-year-old white male well-known to me. His PSA level has been persistently elevated and was most recently 8.36 in April 2024. In 2011, he underwent a prostate ultrasound with biopsies. The prostate volume at that time was 45 cc, and biopsies were negative. An MRI of the prostate performed earlier this year revealed a volume of 79 cc with no suspicious lesions seen. He has been verified in the past to be emptying his bladder adequately. When seen in April, urinalysis showed no evidence of infection and his voiding symptoms were stable. He was recently treated for a UTI with ciprofloxacin, but failed to improve. A urine culture sent on July 20 showed ESBL E. coli, for which he is currently receiving meropenem. Renal ultrasound showed marked right hydronephrosis, moderate left hydronephrosis, and an irregular posterior bladder wall with debris. A Julio catheter was subsequently placed. 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), ENLARGED PROSTATE History of Any Multi-Drug Resistant Organisms: None Reported Past Surgical History: Appendectomy Past Anesthesia/Blood Transfusion Reactions: No Reported Reaction Past Psychological History: No Psychological Hx Reported Smoking Status: Current some day smoker Past Alcohol Use History: None Reported Additional Past Alcohol Use History / Comment(s): now smokes 3 cigarettes-since age 16 Past Drug Use History: None Reported - Past Family History Father Family Medical History: Cancer Brother(s) Family Medical History: Cancer Sister(s) Family Medical History: Cancer Medications and Allergies Home Medications Medication Instructions Recorded Confirmed Type Simvastatin 20 mg PO HS 09/28/15 07/23/24 History Aspirin [Adult Low Dose Aspirin EC] 81 mg PO DAILY 07/21/19 07/23/24 History amLODIPine [Norvasc] 5 mg PO HS 07/21/19 07/23/24 History Ciprofloxacin HCl [Cipro] 500 mg PO DIRECTED 07/23/24 07/23/24 History Losartan Potassium 100 mg PO HS 07/23/24 07/23/24 History Allergies Allergy/AdvReac Type Severity Reaction Status Date / Time No Known Allergies Allergy Verified 07/23/24 16:38 Surgical - Exam Vital Signs Temp Pulse Resp BP Pulse Ox 98.5 F 105 H 18 112/68 96 07/23/24 15:46 07/23/24 15:46 07/23/24 15:46 07/23/24 15:46 07/23/24 15:46 - General well developed, well nourished, no distress - Respiratory normal respiratory effort - Abdomen Abdomen: soft, non tender, no guarding, no rigid, no rebound - Psychiatric oriented to time, oriented to person, oriented to place, speech is normal, memory intact Results - Labs 07/25/24 06:09 07/25/24 06:09 Abnormal Lab Results - Last 24 Hours (Table) 07/25/24 07/25/24 Range/Units 06:09 06:09 WBC 15.5 H (3.8-10.6) k/uL RBC 3.96 L (4.30-5.90) m/uL Hgb 12.0 L (13.0-17.5) gm/dL Hct 36.0 L (39.0-53.0) % Neutrophils # 13.3 H (1.3-7.7) k/uL Chloride 110 H (98-107) mmol/L Carbon Dioxide 20 L (22-30) mmol/L BUN 32 H (9-20) mg/dL Creatinine 1.28 H (0.66-1.25) mg/dL Glucose 115 H (74-99) mg/dL Calcium 8.2 L (8.4-10.2) mg/dL Microbiology - Last 24 Hours (Table) 07/23/24 22:37 Blood Culture - Preliminary Blood Diabetes panel 07/25/24 Range/Units 06:09 Sodium 137 (137-145) mmol/L Potassium 3.7 (3.5-5.1) mmol/L Chloride 110 H (98-107) mmol/L Carbon Dioxide 20 L (22-30) mmol/L BUN 32 H (9-20) mg/dL Creatinine 1.28 H (0.66-1.25) mg/dL Glucose 115 H (74-99) mg/dL Calcium 8.2 L (8.4-10.2) mg/dL Calcium panel 07/25/24 Range/Units 06:09 Calcium 8.2 L (8.4-10.2) mg/dL Pituitary panel 07/25/24 Range/Units 06:09 Sodium 137 (137-145) mmol/L Potassium 3.7 (3.5-5.1) mmol/L Chloride 110 H (98-107) mmol/L Carbon Dioxide 20 L (22-30) mmol/L BUN 32 H (9-20) mg/dL Creatinine 1.28 H (0.66-1.25) mg/dL Glucose 115 H (74-99) mg/dL Calcium 8.2 L (8.4-10.2) mg/dL Adrenal panel 07/25/24 Range/Units 06:09 Sodium 137 (137-145) mmol/L Potassium 3.7 (3.5-5.1) mmol/L Chloride 110 H (98-107) mmol/L Carbon Dioxide 20 L (22-30) mmol/L BUN 32 H (9-20) mg/dL Creatinine 1.28 H (0.66-1.25) mg/dL Glucose 115 H (74-99) mg/dL Calcium 8.2 L (8.4-10.2) mg/dL - Imaging US - kidney/bladder: report reviewed Assessment and Plan Assessment: Renal ultrasound showed marked right hydronephrosis, moderate left hydronep hrosis, and an irregular posterior bladder wall with debris. The amount of urine drained upon initial Julio catheter insertion has been difficult to ascertain. However, nursing records do indicate that urine output was approximately 3 L in the midnight shift following Julio catheter placement, sug gestive of postobstructive diuresis. The patient did develop gross hematuria following catheter placement, which is improving. As stated, he is receiving meropenem for an ESBL E. coli UTI. (1) Infection due to ESBL-producing Escherichia coli Current Visit: Yes Status: Acute Code(s): A49.8 - OTHER BACTERIAL INFECTIONS OF UNSPECIFIED SITE; Z16.12 - EXTENDED SPECTRUM BETA LACTAMASE (ESBL) RESISTANCE SNOMED Code(s): 470712457 (2) UTI (urinary tract infection) Current Visit: Yes Status: Acute Code(s): N39.0 - URINARY TRACT INFECTION, SITE NOT SPECIFIED SNOMED Code(s): 17913146 (3) Unspecified hydronephrosis Current Visit: Yes Status: Acute Code(s): N13.30 - UNSPECIFIED HYDRONEPHROSIS SNOMED Code(s): 34880498 Plan: Continue meropenem. Continue Julio catheter drainage. The patient should be discharged home with the catheter. Arrangements will be made for him to undergo urodynamic testing and cystoscopy as an outpatient. Time with Patient: Greater than 30
--- NOTE | 2024-07-26 11:02 | P.PN ---
Subjective Progress Note Date: 07/26/24 No acute overnight event, urine is blood-tinged without clots. Creatinine continues to trend down to 1.28. Objective - Vital Signs Vital signs: Vital Signs Temp 98.3 F 07/26/24 07:15 Pulse 89 07/26/24 07:15 Resp 18 07/26/24 07:15 BP 131/87 07/26/24 07:15 Pulse Ox 95 07/26/24 07:15 FiO2 Intake & Output 07/25/24 07/26/24 07/26/24 18:59 06:59 18:59 Intake Total 340 Output Total 2720 1600 Balance -2720 -1260 Intake: Intake, IV Titration 340 Amount Meropenem 1 gm In Sodium 100 Chloride 0.9% 100 ml @ 33 .3 mls/hr IVPB Q12HR [facility] Rx#:[id number] Sodium Chloride 0.9% 1, 240 000 ml @ 75 mls/hr IV . [id number] [facility] Rx#:[id number] Output: Urine 2720 1600 Other: Voiding Method Indwelling Catheter Indwelling Catheter Indwelling Catheter # Bowel Movements 0 - Constitutional General appearance: Present: no acute distress - Gastrointestinal General gastrointestinal: Present: soft, tenderness. Absent: distended - Labs CBC & Chem 7: 07/25/24 06:09 07/25/24 06:09 Labs: Microbiology - Last 24 Hours (Table) 07/23/24 22:37 Blood Culture - Preliminary Blood 07/24/24 13:43 Urine Culture - Preliminary Urine,Voided Gram Neg Bacilli Assessment and Plan Assessment: 79-year-old male admitted to the hospital UTI urinary retention bilateral hydronephrosis secondary to urinary retention, creatinine has been trending down with a Julio catheter. Volume obtained is unknown on catheter insertion, but patient made about 3 L following catheter insertion. -From urology standpoint he can be discharged home once the urine culture is finalized, he will follow-up with Dr. Davidson as an outpatient for cystoscopy and urodynamics
[2024-07-26 12:07] LABS: BUN/Creat Ratio 16.33 Ratio (12.00-20.00); Blood Urea Nitrogen 19.6 mg/dL (9.0-27.0); Calcium 8.1 mg/dL (8.7-10.3); Carbon Dioxide 22.5 mmol/L (21.6-31.8); Chloride 107 mmol/L (96-109); Glucose 118 mg/dL (70-110); Potassium 3.8 mmol/L (3.5-5.5); Sodium 141 mmol/L (135-145)
[2024-07-26 14:08] LABS: Basophils # (A) 0.01 X 10*3/uL (0.00-0.10); Basophils % (A) 0.1 %; Eosinophils # (A) 0.04 X 10*3/uL (0.04-0.35); Eosinophils % (A) 0.3 %; HCT 35.6 % (39.6-50.0); HGB 11.2 g/dL (13.0-17.0); Lymphocytes # (A) 1.23 X 10*3/uL (0.90-5.00); MCH 28.9 pg (27.0-32.0); MCHC 31.5 g/dL (32.0-37.0); MCV 91.8 FL (80.0-97.0); Monocytes % (A) 6.5 %; NRBC Per 100 WBC 0 X 10*3/uL (0.00-0.01); Neutrophils # (A) 12.93 X 10*3/uL (1.80-7.70); Neutrophils % (A) 83.4 %; Platelet Count 172 X 10*3/uL (140-440); RBC 3.88 X 10*6/uL (4.40-5.60); WBC 15.47 X 10*3/uL (4.50-10.00)
--- NOTE | 2024-07-26 14:37 | P.PN ---
Subjective patient is seen for follow-up for acute kidney injury associated with hypotension an obstructive uropathy. Currently with indwelling Julio catheter. Urine is noted to be bloody. Serum creatinine improved to 1.2 today. no other complaints today. Objective - Vital Signs Vital signs: Vital Signs Temp 98.3 F 07/26/24 07:15 Pulse 89 07/26/24 07:15 Resp 18 07/26/24 07:15 BP 131/87 07/26/24 07:15 Pulse Ox 95 07/26/24 07:15 FiO2 Intake & Output 07/25/24 07/26/24 07/26/24 18:59 06:59 18:59 Intake Total 340 Output Total 2720 1600 Balance -2720 -1260 Intake: Intake, IV Titration 340 Amount Meropenem 1 gm In Sodium 100 Chloride 0.9% 100 ml @ 33 .3 mls/hr IVPB Q12HR [facility] Rx#:[id number] Sodium Chloride 0.9% 1, 240 000 ml @ 75 mls/hr IV . [id number] [facility] Rx#:[id number] Output: Urine 2720 1600 Other: Voiding Method Indwelling Catheter Indwelling Catheter Indwelling Catheter # Bowel Movements 0 - Exam Patient is awake, comfortable, no acute distress. 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 - Labs CBC & Chem 7: 07/26/24 04:27 07/26/24 04:27 Labs: Abnormal Lab Results - Last 24 Hours (Table) 07/26/24 07/26/24 Range/Units 04:27 04:27 WBC 15.47 H (4.50-10.00) X 10*3/uL RBC 3.88 L (4.40-5.60) X 10*6/uL Hgb 11.2 L (13.0-17.0) g/dL Hct 35.6 L (39.6-50.0) % MCHC 31.5 L (32.0-37.0) g/dL MPV 13.0 H (9.5-12.2) FL Immature Gran # 0.26 H (0.00-0.04) X 10*3/uL Neutrophils # 12.93 H (1.80-7.70) X 10*3/uL Glucose 118 H (70-110) mg/dL Calcium 8.1 L (8.7-10.3) mg/dL Microbiology - Last 24 Hours (Table) 07/23/24 22:37 Blood Culture - Preliminary Blood 07/24/24 13:43 Urine Culture - Preliminary Urine,Voided Gram Neg Bacilli Assessment and Plan Assessment: 1. Acute kidney injury, ATN secondary to hypotension and obstructive uropathy. Ultrasound shows bilateral hydronephrosis. UA shows 1+ protein and WBCs more than 182 2. Pyuria rule out UTI 3. History of hypertension maintained on losartan prior to admission. 4. Recent diagnosis of UTI started on Cipro 1 day prior to admission. 5. Hematuria secondary to bladder decompression. Plan: Continue with IV fluids Continue to hold losartan continue with Julio catheter.
--- NOTE | 2024-07-26 16:57 | P.PN ---
Subjective Progress Note Date: 07/26/24 Interval History: 79-year-old male patient with past medical history significant for hypertension, hyperlipidemia, history of BPH, who was brought to the ED by his for evaluation of UTI. Patient was advised by his PCP Dr. Gallegos to come to the ED for complicated UTI. Patient complained of lower abdominal pain, over the bladder. Patient denied any flank pain nausea vomiting. Patient denied any f ever or chills. Patient is not a good historian. Patient denied any headache, sore throat, productive cough, chest pain, palpitation, productive cough, shortness of breath, weakness or numbness of extremities, abdominal pain. Patient had been on multiple antibiotics over the past few weeks. Urine culture 07/20 grew ESBL. On presentation patient had a fever of 100.4, pulse rate 93, respiratory rate 17, blood pressure 93/54, saturating 94% on room air. Labs: WBCs 25.56, Hemoglobin 9.6, platelets 113, BMP remarkable for creatinine 2.08, BUN 52. UA positive with large amount of WBCs and leukocyte Estrace. Urine culture 07/20 grew ESBL. 07/25--patient was seen and examined today. at bedside. reported that patient does have dementia at baseline, patient appears to be at baseline per . Ultrasound renal showed moderate to marked bilateral hydronephrosis, patient currently on meropenem, infectious disease and urology following. WBCs trending down, creatinine improving. Urology consulted. 07/26--patient was seen and examined today. at bedside. WBCs same as yesterday 15.4. Hemoglobin stable 11.2. Platelet normal. Creatinine trended down to 1.2. Urology consultedrecommended to discharge home with Julio's catheter, outpatient cystoscopy and urodynamics. Assessment and plan: Complicated UTI: ESBL: Sepsis: Hypotension: Acute metabolic encephalopathy: Resolved Probable dementia: Sent in by PCP for evaluation of complicated UTI, complaint of frequency, suprapubic pain, altered mental status. Urine culture 07/20 growing ESBL/E. coli Current meropenem Repeat urine culturegram-negative bacilli Blood cultures. Negative so far Hold antihypertensives. Nephrology and infectious disease consulted Acute kidney injury: Bilateral hydronephrosis: Secondary to above Monitor for retention, Julio catheter in place Hold losartan Hold Norvasc due to low blood pressure Ultrasound renal--moderate to marked bilateral hydronephrosis. IV fluids Nephrology consulted Urology consulted--recommended to maintain Julio at discharge, outpatient follow-up for cystoscopy and urodynamics. DVT prophylaxis Subcutaneous heparin Monitor vital signs and labs Continue telemetry monitoring Labs and medication were reviewed. Continue same treatment. Resume home medication. Further recommendations as per clinical course of the patient PHYSICAL EXAMINATION: GENERAL: The patient is A&O. NAD HEENT: EOMI, Sclerae anicteric, Moist Mucous membranes Neck: Supple, Non tender, No JVD PULMONARY: Equal breath souds B/L, No wheezing, No crackles. CARDIOVASCULAR: S1, S2 present. No murmurs, rubs, or gallops. ABDOMEN: Soft, nontender, nondistended, normoactive bowel sounds. No guarding or rebound tenderness. MUSCULOSKELETAL: No edema, No cyanosis. No clubbing. Normal ROM. Intact peripheral pulses. EXTREMITIES: No cyanosis, clubbing, or pedal edema. NEUROLOGICAL: CN 2-12 grossly intact. No FND Skin: No Rash REVIEW OF SYSTEMS: CONSTITUTIONAL: No fever or chills. CARDIOVASCULAR: No chest pain, palpitations or syncope. PULMONARY: No shortness of breath, no cough, sore throat. GASTROINTESTINAL: No nausea, vomiting, diarrhea, abdominal pain. : No Dysuria, urgency, frequency. Extremities: No edema. NEUROLOGICAL: No headaches, no weakness, or numbness Dictation was produced using [employer] dictation software. please excuse any grammatical, word or spelling errors. Objective - Vital Signs Vital signs: Vital Signs Temp 98.3 F 07/26/24 07:15 Pulse 85 07/26/24 13:32 Resp 18 07/26/24 13:32 BP 144/87 07/26/24 13:32 Pulse Ox 95 07/26/24 13:32 FiO2 Intake & Output 07/25/24 07/26/24 07/26/24 18:59 06:59 18:59 Intake Total 340 Output Total 2720 1600 Balance -9410 -1260 Intake: Intake, IV Titration 340 Amount Meropenem 1 gm In Sodium 100 Chloride 0.9% 100 ml @ 33 .3 mls/hr IVPB Q12HR [facility] Rx#:[id number] Sodium Chloride 0.9% 1, 240 000 ml @ 75 mls/hr IV . [id number] [facility] Rx#:[id number] Output: Urine 2720 1600 Other: Voiding Method Indwelling Catheter Indwelling Catheter Indwelling Catheter # Bowel Movements 0 - Labs CBC & Chem 7: 07/26/24 04:27 07/26/24 04:27 Labs: Abnormal Lab Results - Last 24 Hours (Table) 07/26/24 07/26/24 Range/Units 04:27 04:27 WBC 15.47 H (4.50-10.00) X 10*3/uL RBC 3.88 L (4.40-5.60) X 10*6/uL Hgb 11.2 L (13.0-17.0) g/dL Hct 35.6 L (39.6-50.0) % MCHC 31.5 L (32.0-37.0) g/dL MPV 13.0 H (9.5-12.2) FL Immature Gran # 0.26 H (0.00-0.04) X 10*3/uL Neutrophils # 12.93 H (1.80-7.70) X 10*3/uL Glucose 118 H (70-110) mg/dL Calcium 8.1 L (8.7-10.3) mg/dL Microbiology - Last 24 Hours (Table) 07/23/24 22:37 Blood Culture - Preliminary Blood 07/24/24 13:43 Urine Culture - Preliminary Urine,Voided Gram Neg Bacilli
--- NOTE | 2024-07-26 21:46 | P.PN ---
Subjective Progress Note Date: 07/26/24 Principal diagnosis: Reason for follow-up is complicated UTI Patient is a 79-year-old male with a past medical history significant for hypertension hyperlipidemia, prostate disorder history of recurrent UTI apparently the patient did have outpatient urine culture done which came back positive with a ESBL E. coli for the patient was advised to go to the hospital for IV antibiotic therapy. On today's evaluation that is 07/26/2024, the patient continues to be afebrile, the patient is on room air and breathing comfortably, the Pt denies having any chest pain or cough, the patient denies having any abdominal pain no vomiting or any diarrhea has been reported by the nursing staff did have a Julio catheter placement. Patient white count is 15.47, creatinine is 1.2 urine with E. coli ESBL Objective - Vital Signs Vital signs: Vital Signs Temp 98.3 F 07/26/24 07:15 Pulse 89 07/26/24 07:15 Resp 18 07/26/24 07:15 BP 131/87 07/26/24 07:15 Pulse Ox 95 07/26/24 07:15 FiO2 Intake & Output 07/25/24 07/26/24 07/26/24 18:59 06:59 18:59 Intake Total 340 Output Total 2720 1600 Balance -2720 -1260 Intake: Intake, IV Titration 340 Amount Meropenem 1 gm In Sodium 100 Chloride 0.9% 100 ml @ 33 .3 mls/hr IVPB Q12HR [facility] Rx#:[id number] Sodium Chloride 0.9% 1, 240 000 ml @ 75 mls/hr IV . [id number] [facility] Rx#:[id number] Output: Urine 2720 1600 Other: Voiding Method Indwelling Catheter Indwelling Catheter Indwelling Catheter # Bowel Movements 0 - Exam GENERAL DESCRIPTION: An elderly male lying in bed in no distress RESPIRATORY SYSTEM: Unlabored breathing , decreased breath sounds at bases HEART: S1 S2 regular rate and rhythm , ABDOMEN: Soft , no tenderness EXTREMITIES: No edema feet - Labs CBC & Chem 7: 07/26/24 04:27 07/26/24 04:27 Labs: Abnormal Lab Results - Last 24 Hours (Table) 07/26/24 07/26/24 Range/Units 04:27 04:27 WBC 15.47 H (4.50-10.00) X 10*3/uL RBC 3.88 L (4.40-5.60) X 10*6/uL Hgb 11.2 L (13.0-17.0) g/dL Hct 35.6 L (39.6-50.0) % MCHC 31.5 L (32.0-37.0) g/dL MPV 13.0 H (9.5-12.2) FL Immature Gran # 0.26 H (0.00-0.04) X 10*3/uL Neutrophils # 12.93 H (1.80-7.70) X 10*3/uL Glucose 118 H (70-110) mg/dL Calcium 8.1 L (8.7-10.3) mg/dL Microbiology - Last 24 Hours (Table) 07/23/24 22:37 Blood Culture - Preliminary Blood 07/24/24 13:43 Urine Culture - Preliminary Urine,Voided Gram Neg Bacilli Assessment and Plan (1) Sepsis Current Visit: Yes Status: Acute Code(s): A41.9 - SEPSIS, UNSPECIFIED ORGANISM SNOMED Code(s): 20627911 (2) UTI (urinary tract infection) Current Visit: Yes Status: Acute Code(s): N39.0 - URINARY TRACT INFECTION, SITE NOT SPECIFIED SNOMED Code(s): 54089476 (3) Infection due to ESBL-producing Escherichia coli Current Visit: Yes Status: Acute Code(s): A49.8 - OTHER BACTERIAL INFECTIONS OF UNSPECIFIED SITE; Z16.12 - EXTENDED SPECTRUM BETA LACTAMASE (ESBL) RESISTANCE SNOMED Code(s): 192819011 Plan: 1patient presented to hospital with sepsis in this patient who did have a fever elevated white count source is urinary tract infection with a urine culture done in the outpatient setting positive for ESBL E. coli likely in the infected pathogen failing outpatient oral antibiotic therapy. 2patient also have elevated creatinine concerning for possible obstructive uropathy which has been confirmed on abdominal ultrasound urology has been consulted patient did have Julio catheter placement. 3patient to continuemeropenem will need a midline and outpatient IV antibiotic therapy at the bedside questions were answered Dictation was produced using [employer] software. please excuse any grammatical, word or spelling errors. Time with Patient: Less than 30
[2024-07-27 09:36] LABS: Basophils # (A) 0.04 X 10*3/uL (0.00-0.10); Basophils % (A) 0.3 %; Eosinophils # (A) 0.18 X 10*3/uL (0.04-0.35); Eosinophils % (A) 1.4 %; HCT 34.9 % (39.6-50.0); HGB 11.2 g/dL (13.0-17.0); Lymphocytes # (A) 1.47 X 10*3/uL (0.90-5.00); Lymphocytes % (A) 11.5 %; MCH 29.7 pg (27.0-32.0); MCHC 32.1 g/dL (32.0-37.0); MCV 92.6 FL (80.0-97.0); Mean Platelet Volume 13.3 FL (9.5-12.2); Monocytes # (A) 0.82 X 10*3/uL (0.20-1.00); Monocytes % (A) 6.4 %; NRBC Per 100 WBC 0 X 10*3/uL (0.00-0.01); Neutrophils # (A) 10.02 X 10*3/uL (1.80-7.70); Neutrophils % (A) 78.7 %; RBC 3.77 X 10*6/uL (4.40-5.60); RDW 13.9 % (11.5-14.5); WBC 12.75 X 10*3/uL (4.50-10.00)
[2024-07-27 10:30] LABS: Blood Urea Nitrogen 13.8 mg/dL (9.0-27.0); Carbon Dioxide 23.6 mmol/L (21.6-31.8); Chloride 105 mmol/L (96-109); Glucose 109 mg/dL (70-110); Magnesium 1.6 mg/dL (1.5-2.4); Potassium 3.6 mmol/L (3.5-5.5); Sodium 139 mmol/L (135-145)
--- NOTE | 2024-07-27 11:54 | P.PN ---
Subjective patient is seen for follow-up for acute kidney injury associated with hypotension an obstructive uropathy. Currently with indwelling Julio catheter. Hematuria has improved. Serum creatinine improved to 1.0 today. no other complaints today. Objective - Vital Signs Vital signs: Vital Signs Temp 99.5 F 07/27/24 08:00 Pulse 77 07/27/24 08:00 Resp 16 07/27/24 08:00 BP 123/78 07/27/24 08:00 Pulse Ox 96 07/27/24 08:00 FiO2 Intake & Output 07/26/24 07/27/24 07/27/24 18:59 06:59 18:59 Intake Total 760 Output Total 700 1000 700 Balance -700 -240 -700 Intake: Intake, IV Titration 280 Amount Meropenem 1 gm In Sodium 100 Chloride 0.9% 100 ml @ 33 .3 mls/hr IVPB Q12HR [facility] Rx#:[id number] Sodium Chloride 0.9% 1, 180 000 ml @ 75 mls/hr IV . [id number] [facility] Rx#:[id number] Oral 480 Output: Urine 700 1000 700 Other: Voiding Method Indwelling Catheter Indwelling Catheter - Exam Patient is awake, comfortable, no acute distress. 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 - Labs CBC & Chem 7: 07/27/24 03:12 07/27/24 03:12 Labs: Abnormal Lab Results - Last 24 Hours (Table) 07/26/24 07/26/24 07/27/24 Range/Units 04:27 04:27 03:12 WBC 15.47 H 12.75 H (4.50-10.00) X 10*3/uL RBC 3.88 L 3.77 L (4.40-5.60) X 10*6/uL Hgb 11.2 L 11.2 L (13.0-17.0) g/dL Hct 35.6 L 34.9 L (39.6-50.0) % MCHC 31.5 L (32.0-37.0) g/dL MPV 13.0 H 13.3 H (9.5-12.2) FL Immature Gran # 0.26 H 0.22 H (0.00-0.04) X 10*3/uL Neutrophils # 12.93 H 10.02 H (1.80-7.70) X 10*3/uL Glucose 118 H (70-110) mg/dL Calcium 8.1 L (8.7-10.3) mg/dL 07/27/24 Range/Units 03:12 WBC (4.50-10.00) X 10*3/uL RBC (4.40-5.60) X 10*6/uL Hgb (13.0-17.0) g/dL Hct (39.6-50.0) % MCHC (32.0-37.0) g/dL MPV (9.5-12.2) FL Immature Gran # (0.00-0.04) X 10*3/uL Neutrophils # (1.80-7.70) X 10*3/uL Glucose (70-110) mg/dL Calcium 8.0 L (8.7-10.3) mg/dL Microbiology - Last 24 Hours (Table) 07/23/24 22:37 Blood Culture - Preliminary Blood 07/24/24 13:43 Urine Culture - Final Urine,Voided Escherichia coli Assessment and Plan Assessment: 1. Acute kidney injury, ATN secondary to hypotension and obstructive uropathy. Ultrasound shows bilateral hydronephrosis. UA shows 1+ protein and WBCs more than 182 2. UTI with urine culture growing E. coli 3. History of hypertension maintained on losartan prior to admission. 4. Recent diagnosis of UTI started on Cipro 1 day prior to admission. 5. Hematuria secondary to bladder decompression. Plan: can discontinue IV fluids. Encouraged increased oral intake. okay to resume losartan if blood pressure is elevated. Currently within range. continue with Julio catheter.
--- NOTE | 2024-07-27 15:26 | P.PN ---
Subjective Progress Note Date: 07/27/24 Interval History: 79-year-old male patient with past medical history significant for hypertension, hyperlipidemia, history of BPH, who was brought to the ED by his for evaluation of UTI. Patient was advised by his PCP Dr. Gallegos to come to the ED for complicated UTI. Patient complained of lower abdominal pain, over the bladder. Patient denied any flank pain nausea vomiting. Patient denied any f ever or chills. Patient is not a good historian. Patient denied any headache, sore throat, productive cough, chest pain, palpitation, productive cough, shortness of breath, weakness or numbness of extremities, abdominal pain. Patient had been on multiple antibiotics over the past few weeks. Urine culture 07/20 grew ESBL. On presentation patient had a fever of 100.4, pulse rate 93, respiratory rate 17, blood pressure 93/54, saturating 94% on room air. Labs: WBCs 25.56, Hemoglobin 9.6, platelets 113, BMP remarkable for creatinine 2.08, BUN 52. UA positive with large amount of WBCs and leukocyte Estrace. Urine culture 07/20 grew ESBL. 07/25--patient was seen and examined today. at bedside. reported that patient does have dementia at baseline, patient appears to be at baseline per . Ultrasound renal showed moderate to marked bilateral hydronephrosis, patient currently on meropenem, infectious disease and urology following. WBCs trending down, creatinine improving. Urology consulted. 07/26--patient was seen and examined today. at bedside. WBCs same as yesterday 15.4. Hemoglobin stable 11.2. Platelet normal. Creatinine trended down to 1.2. Urology consultedrecommended to discharge home with Julio's catheter, outpatient cystoscopy and urodynamics. 07/27--patient was seen and examined today. No issues overnight. at bedside. Creatinine improved to 1.0. Leukocytosis improving, 12.75 today. Hemoglobin stable 11.2. Hematuria is improving. Nephrology following, okay to discontinue IV fluids. Infectious disease on board, currently on meropenem, anticipate outpatient IV antibiotics with midline at discharge. PT/OT consulted. Assessment and plan: Complicated UTI: ESBL: Sepsis: Hypotension: Acute metabolic encephalopathy: Resolved Probable dementia: Sent in by PCP for evaluation of complicated UTI, complaint of frequency, suprapubic pain, altered mental status. Urine culture 07/20 growing ESBL/E. coli Current meropenem Repeat urine culturegram-negative bacilli--- E. coli Blood cultures. Negative so far Hold antihypertensives. Nephrology and infectious disease consulted Acute kidney injury: Bilateral hydronephrosis: Secondary to above Monitor for retention, Julio catheter in place Hold losartan Hold Norvasc due to low blood pressure Ultrasound renal--moderate to marked bilateral hydronephrosis. IV fluids Nephrology consultedfollowing Urology consulted--recommended to maintain Julio at discharge, outpatient follow-up for cystoscopy and urodynamics. DVT prophylaxis Subcutaneous heparin Monitor vital signs and labs Continue telemetry monitoring Labs and medication were reviewed. Continue same treatment. Resume home medication. Further recommendations as per clinical course of the patient PHYSICAL EXAMINATION: GENERAL: The patient is A&O. NAD HEENT: EOMI, Sclerae anicteric, Moist Mucous membranes Neck: Supple, Non tender, No JVD PULMONARY: Equal breath souds B/L, No wheezing, No crackles. CARDIOVASCULAR: S1, S2 present. No murmurs, rubs, or gallops. ABDOMEN: Soft, nontender, nondistended, normoactive bowel sounds. No guarding or rebound tenderness. MUSCULOSKELETAL: No edema, No cyanosis. No clubbing. Normal ROM. Intact peripheral pulses. EXTREMITIES: No cyanosis, clubbing, or pedal edema. NEUROLOGICAL: CN 2-12 grossly intact. No FND Skin: No Rash REVIEW OF SYSTEMS: CONSTITUTIONAL: No fever or chills. CARDIOVASCULAR: No chest pain, palpitations or syncope. PULMONARY: No shortness of breath, no cough, sore throat. GASTROINTESTINAL: No nausea, vomiting, diarrhea, abdominal pain. : No Dysuria, urgency, frequency. Extremities: No edema. NEUROLOGICAL: No headaches, no weakness, or numbness Dictation was produced using [employer] dictation software. please excuse any grammatical, word or spelling errors. Objective - Vital Signs Vital signs: Vital Signs Temp 98.3 F 07/27/24 13:08 Pulse 80 07/27/24 13:08 Resp 14 07/27/24 13:08 BP 117/78 07/27/24 13:08 Pulse Ox 96 07/27/24 13:08 FiO2 Intake & Output 07/26/24 07/27/2407/27/24 18:59 06:59 18:59 Intake Total 760 Output Total 700 1000 700 Balance -700 -240 -700 Intake: Intake, IV Titration 280 Amount Meropenem 1 gm In Sodium 100 Chloride 0.9% 100 ml @ 33 .3 mls/hr IVPB Q12HR [facility] Rx#:[id number] Sodium Chloride 0.9% 1, 180 000 ml @ 75 mls/hr IV . [id number] [facility] Rx#:[id number] Oral 480 Output: Urine 700 1000 700 Other: Voiding Method Indwelling Catheter Indwelling Catheter - Labs CBC & Chem 7: 07/27/24 03:12 07/27/24 03:12 Labs: Abnormal Lab Results - Last 24 Hours (Table) 07/27/24 07/27/24 Range/Units 03:12 03:12 WBC 12.75 H (4.50-10.00) X 10*3/uL RBC 3.77 L (4.40-5.60) X 10*6/uL Hgb 11.2 L (13.0-17.0) g/dL Hct 34.9 L (39.6-50.0) % MPV 13.3 H (9.5-12.2) FL Immature Gran # 0.22 H (0.00-0.04) X 10*3/uL Neutrophils # 10.02 H (1.80-7.70) X 10*3/uL Calcium 8.0 L (8.7-10.3) mg/dL Microbiology - Last 24 Hours (Table) 07/23/24 22:37 Blood Culture - Preliminary Blood 07/24/24 13:43 Urine Culture - Final Urine,Voided Escherichia coli
--- NOTE | 2024-07-27 16:25 | P.PN ---
Subjective Progress Note Date: 07/27/24 Principal diagnosis: Reason for follow-up is complicated UTI Patient is a 79-year-old male with a past medical history significant for hypertension hyperlipidemia, prostate disorder history of recurrent UTI apparently the patient did have outpatient urine culture done which came back positive with a ESBL E. coli for the patient was advised to go to the hospital for IV antibiotic therapy. On today's evaluation that is 07/27/2024, Patient is afebrile patient is curre ntly on room air and denies having any shortness of breath, the patient denies any chest pain or cough, the patient denies any nausea vomiting did not have any abdominal pain and no diarrhea has been reported. Patient white count is down to 12.75, creatinine is 1.0 urine with a ESBL blood culture negative Objective - Vital Signs Vital signs: Vital Signs Temp 98.3 F 07/27/24 13:08 Pulse 80 07/27/24 13:08 Resp 14 07/27/24 13:08 BP 117/78 07/27/24 13:08 Pulse Ox 96 07/27/24 13:08 FiO2 Intake & Output 07/26/24 07/27/24 07/27/24 18:59 06:59 18:59 Intake Total 760 Output Total 700 1000 700 Balance -700 -240 -700 Intake: Intake, IV Titration 280 Amount Meropenem 1 gm In Sodium 100 Chloride 0.9% 100 ml @ 33 .3 mls/hr IVPB Q12HR [facility] Rx#:[id number] Sodium Chloride 0.9% 1, 180 000 ml @ 75 mls/hr IV . [id number] [facility] Rx#:[id number] Oral 480 Output: Urine 700 1000 700 Other: Voiding Method Indwelling Catheter Indwelling Catheter - Exam GENERAL DESCRIPTION: An elderly male lying in bed in no distress RESPIRATORY SYSTEM: Unlabored breathing , decreased breath sounds at bases HEART: S1 S2 regular rate and rhythm , ABDOMEN: Soft , no tenderness EXTREMITIES: No edema feet - Labs CBC & Chem 7: 07/27/24 03:12 07/27/24 03:12 Labs: Abnormal Lab Results - Last 24 Hours (Table) 07/27/24 07/27/24 Range/Units 03:12 03:12 WBC 12.75 H (4.50-10.00) X 10*3/uL RBC 3.77 L (4.40-5.60) X 10*6/uL Hgb 11.2 L (13.0-17.0) g/dL Hct 34.9 L (39.6-50.0) % MPV 13.3 H (9.5-12.2) FL Immature Gran # 0.22 H (0.00-0.04) X 10*3/uL Neutrophils # 10.02 H (1.80-7.70) X 10*3/uL Calcium 8.0 L (8.7-10.3) mg/dL Microbiology - Last 24 Hours (Table) 07/23/24 22:37 Blood Culture - Preliminary Blood 07/24/24 13:43 Urine Culture - Final Urine,Voided Escherichia coli Assessment and Plan (1) Sepsis Current Visit: Yes Status: Acute Code(s): A41.9 - SEPSIS, UNSPECIFIED ORGANISM SNOMED Code(s): 32729287 (2) UTI (urinary tract infection) Current Visit: Yes Status: Acute Code(s): N39.0 - URINARY TRACT INFECTION, SITE NOT SPECIFIED SNOMED Code(s): 53397876 (3) Infection due to ESBL-producing Escherichia coli Current Visit: Yes Status: Acute Code(s): A49.8 - OTHER BACTERIAL INFECTIONS OF UNSPECIFIED SITE; Z16.12 - EXTENDED SPECTRUM BETA LACTAMASE (ESBL) RESISTANCE SNOMED Code(s): 195274734 Plan: 1patient presented to hospital with sepsis in this patient who did have a fever elevated white count source is urinary tract infection with a urine culture done in the outpatient setting positive for ESBL E. coli likely in the infected pathogen failing outpatient oral antibiotic therapy. 2patient also have elevated creatinine concerning for possible obstructive uropathy which has been confirmed on abdominal ultrasound urology has been consulted patient did have Julio catheter placement. 3patient to continuemeropenem, we will order a midline for outpatient IV antibiotic therapy which will be Invanz 1 g daily to finish a 2-week course of therapy Dictation was produced using [employer] dictation software. please excuse any grammatical, word or spelling errors. Time with Patient: Less than 30
[2024-07-28 08:44] LABS: Basophils # (A) 0.04 X 10*3/uL (0.00-0.10); Basophils % (A) 0.4 %; Eosinophils # (A) 0.24 X 10*3/uL (0.04-0.35); Eosinophils % (A) 2.6 %; HCT 32.4 % (39.6-50.0); HGB 10.6 g/dL (13.0-17.0); Lymphocytes # (A) 1.43 X 10*3/uL (0.90-5.00); Lymphocytes % (A) 15.6 %; MCH 30.1 pg (27.0-32.0); MCHC 32.7 g/dL (32.0-37.0); Mean Platelet Volume 12.7 FL (9.5-12.2); Monocytes # (A) 0.58 X 10*3/uL (0.20-1.00); Monocytes % (A) 6.3 %; NRBC Per 100 WBC 0 X 10*3/uL (0.00-0.01); Neutrophils # (A) 6.69 X 10*3/uL (1.80-7.70); Platelet Count 214 X 10*3/uL (140-440); RBC 3.52 X 10*6/uL (4.40-5.60); RDW 13.9 % (11.5-14.5); WBC 9.17 X 10*3/uL (4.50-10.00)
[2024-07-28 09:01] LABS: Calcium 8.2 mg/dL (8.7-10.3); Carbon Dioxide 24.3 mmol/L (21.6-31.8); Chloride 106 mmol/L (96-109); Glucose 92 mg/dL (70-110); Potassium 3.6 mmol/L (3.5-5.5); Sodium 142 mmol/L (135-145)
--- NOTE | 2024-07-28 16:24 | P.PN ---
Subjective patient is seen for follow-up for acute kidney injury associated with hypotension an obstructive uropathy. Currently with indwelling Julio catheter. Hematuria has improved. Serum creatinine improved to 1.0 today. No complaints today. Objective - Vital Signs Vital signs: Vital Signs Temp 98.3 F 07/28/24 07:48 Pulse 77 07/28/24 07:48 Resp 16 07/28/24 07:48 BP 132/70 07/28/24 07:48 Pulse Ox 96 07/28/24 02:01 FiO2 Intake & Output 07/27/24 07/28/24 07/28/24 18:59 06:59 18:59 Intake Total 1200 Output Total 2150 1200 Balance -950 -1200 Intake: Intake, IV Titration 700 Amount Meropenem 1 gm In Sodium 100 Chloride 0.9% 100 ml @ 33 .3 mls/hr IVPB Q12HR [facility] Rx#:[id number] Sodium Chloride 0.9% 1, 600 000 ml @ 75 mls/hr IV . [id number] [facility] Rx#:[id number] Oral 500 Output: Urine 2150 1200 Other: Voiding Method Indwelling Catheter Indwelling Catheter Indwelling Catheter - Exam Patient is awake, comfortable, no acute distress. Examination of the heart S1 and S2 Examination of the lungs decreased breath sounds at the bases Abdomen is soft nontender Examination of lower extremities shows no significant edema FIELD RECORDER exam shows patient is moving all 4 extremities. - Labs CBC & Chem 7: 07/28/24 04:21 07/28/24 04:21 Labs: Abnormal Lab Results - Last 24 Hours (Table) 07/28/24 07/28/24 Range/Units 04:21 04:21 RBC 3.52 L (4.40-5.60) X 10*6/uL Hgb 10.6 L (13.0-17.0) g/dL Hct 32.4 L (39.6-50.0) % MPV 12.7 H (9.5-12.2) FL Immature Gran # 0.19 H (0.00-0.04) X 10*3/uL Calcium 8.2 L (8.7-10.3) mg/dL Assessment and Plan Assessment: 1. Acute kidney injury, ATN secondary to hypotension and obstructive uropathy. Improved. Ultrasound shows bilateral hydronephrosis. UA shows 1+ protein and WBCs more than 182 2. UTI with urine culture growing E. coli 3. History of hypertension maintained on losartan prior to admission. 4. Recent diagnosis of UTI started on Cipro 1 day prior to admission. 5. Hematuria secondary to bladder decompression. Plan: . Encouraged increased oral intake. okay to resume losartan if blood pressure is elevated. Currently within range. continue with Julio catheter.
--- NOTE | 2024-07-29 06:02 | P.PN ---
Subjective Progress Note Date: 07/28/24 79-year-old male patient with past medical history significant for hypertension, hyperlipidemia, history of BPH, who was brought to the ED by his for evaluation of UTI. Patient was advised by his PCP Dr. Gallegos to come to the ED for complicated UTI. Patient complained of lower abdominal pain, over the bladder. Patient denied any flank pain nausea vomiting. Patient denied any fever or chills. Patient is not a good historian. Patient denied any headache, sore throat, productive cough, chest pain, palpitation, productive cough, shortness of breath, weakness or numbness of extremities, abdominal pain. Patient had been on multiple antibiotics over the past few weeks. Urine culture 07/20 grew ESBL. On presentation patient had a fever of 100.4, pulse rate 93, respiratory rate 17, blood pressure 93/54, saturating 94% on room air. Labs: WBCs 25.56, Hemoglobin 9.6, platelets 113, BMP remarkable for creatinine 2.08, BUN 52. UA positive with large amount of WBCs and leukocyte Estrace. Urine culture 07/20 grew ESBL. 07/25--patient was seen and examined today. at bedside. reported that patient does have dementia at baseline, patient appears to be at baseline per . Ultrasound renal showed moderate to marked bilateral hydronephrosis, patient currently on meropenem, infectious disease and urology following. WBCs trending down, creatinine improving. Urology consulted. 07/26--patient was seen and examined today. at bedside. WBCs same as yesterday 15.4. Hemoglobin stable 11.2. Platelet normal. Creatinine trended down to 1.2. Urology consultedrecommended to discharge home with Julio's catheter, outpatient cystoscopy and urodynamics. 07/27--patient was seen and examined today. No issues overnight. at bedside. Creatinine improved to 1.0. Leukocytosis improving, 12.75 today. Hemoglobin stable 11.2. Hematuria is improving. Nephrology following, okay to discontinue IV fluids. Infectious disease on board, currently on meropenem, anticipate outpatient IV antibiotics with midline at discharge. PT/OT consulted. 07/28/2024 Patient is seen and evaluated in follow-up currently maintained on meropenem with infectious disease following. Plan is for midline today and patient will continue on IV Invanz on discharge for 2-week course. Patient with generalized weakness and gait dysfunction with physical therapy for evaluation as patient and family would like ECF on discharge to manage IV antibiotics as well as continued strength and mobility. Patient is afebrile with no reports of chest pain or shortness of breath. Patient has been tolerating diet and denies any nausea or vomiting. REVIEW OF SYSTEMS: CONSTITUTIONAL: No fever or chills. CARDIOVASCULAR: No chest pain, palpitations or syncope. PULMONARY: No shortness of breath, no cough, sore throat. GASTROINTESTINAL: No nausea, vomiting, diarrhea, abdominal pain. : No Dysuria, urgency, frequency. Extremities: No edema. NEUROLOGICAL: Reports of generalized weakness with gait dysfunction PHYSICAL EXAMINATION: GENERAL: The patient is A&O. NAD, thin built, elderly appearing, cachectic HEENT: EOMI, Sclerae anicteric, Moist Mucous membranes Neck: Supple, Non tender, No JVD PULMONARY: Equal breath souds B/L, No wheezing, No crackles. CARDIOVASCULAR: S1, S2 present. No murmurs, rubs, or gallops. ABDOMEN: Soft, nontender, nondistended, normoactive bowel sounds. No guarding or rebound tenderness. MUSCULOSKELETAL: No edema, No cyanosis. No clubbing. Normal ROM. Intact peripheral pulses. EXTREMITIES: No cyanosis, clubbing, or pedal edema. NEUROLOGICAL: CN 2-12 grossly intact. No FND Skin: No Rash Assessment: Complicated UTI: ESBL: Present on admission with sepsis Hypotension: Secondary to sepsis Acute metabolic encephalopathy: Resolved Probable dementia Acute kidney injury with bilateral hydronephrosis: Secondary to complicated UTI DVT prophylaxis Generalized weakness with gait dysfunction GI prophylaxis Plan: Monitor vital signs and labs Continue IV antibiotics in the form of meropenem and patient has received a midline and will go on IV Invanz daily for 2-week course per ID recommendations Recommend PT/OT therapy evaluation for possible ECF for continued strength and mobility as well as IV antibiotic therapy Home medications reviewed and resumed as appropriate Possible discharge planning in the next 24 to 48 hours The impression and plan of care has been dictated by Jasmine Caballero, Nurse Practitioner as directed. Dr. Yazan MD I have performed a history and examination and MDM of this patient, discussed the same with the dictator, and agree with the dictator's assessment and plan as written ,documented as a scribe. Based on total visit time, I have performed more than 50% of the visit. Objective - Vital Signs Vital signs: Vital Signs Temp 98.3 F 07/28/24 07:48 Pulse 77 07/28/24 07:48 Resp 16 07/28/24 07:48 BP 132/70 07/28/24 07:48 Pulse Ox 96 07/28/24 02:01 FiO2 Intake & Output 07/27/24 07/28/24 07/28/24 18:59 06:59 18:59 Intake Total 1200 Output Total 2150 1200 Balance -950 -1200 Intake: Intake, IV Titration 700 Amount Meropenem 1 gm In Sodium 100 Chloride 0.9% 100 ml @ 33 .3 mls/hr IVPB Q12HR [facility] Rx#:[id number] Sodium Chloride 0.9% 1, 600 000 ml @ 75 mls/hr IV . [id number] [facility] Rx#:[id number] Oral 500 Output: Urine 2150 1200 Other: Voiding Method Indwelling Catheter Indwelling Catheter - Labs CBC & Chem 7: 07/28/24 04:21 07/28/24 04:21 Labs: Abnormal Lab Results - Last 24 Hours (Table) 07/27/24 07/28/24 07/28/24 Range/Units 03:12 04:21 04:21 RBC 3.52 L (4.40-5.60) X 10*6/uL Hgb 10.6 L (13.0-17.0) g/dL Hct 32.4 L (39.6-50.0) % MPV 12.7 H (9.5-12.2) FL Immature Gran # 0.19 H (0.00-0.04) X 10*3/uL Calcium 8.0 L 8.2 L (8.7-10.3) mg/dL
--- NOTE | 2024-07-29 08:08 | P.PN ---
Subjective Progress Note Date: 07/28/24 Principal diagnosis: Reason for follow-up is complicated UTI Patient is a 79-year-old male with a past medical history significant for hypertension hyperlipidemia, prostate disorder history of recurrent UTI apparently the patient did have outpatient urine culture done which came back positive with a ESBL E. coli for the patient was advised to go to the hospital for IV antibiotic therapy. On today's evaluation that is 07/28/2024, patient has been afebrile, patient is breathing comfortably and is currently on room air, patient denies having any significant cough no chest pain shortness of breath, patient denies nausea vomiting or diarrhea and no abdominal pain, bicycle has been concerned about the patient has been getting up by the nursing staff. Patient white count is down to 9.17 creatinine is 1.0 blood culture negative Objective - Vital Signs Vital signs: Vital Signs Temp 98.3 F 07/28/24 07:48 Pulse 77 07/28/24 07:48 Resp 16 07/28/24 07:48 BP 132/70 07/28/24 07:48 Pulse Ox 96 07/28/24 02:01 FiO2 Intake & Output 07/27/24 07/28/24 07/28/24 18:59 06:59 18:59 Intake Total 1200 Output Total 2150 1200 Balance -950 -1200 Intake: Intake, IV Titration 700 Amount Meropenem 1 gm In Sodium 100 Chloride 0.9% 100 ml @ 33 .3 mls/hr IVPB Q12HR [facility] Rx#:[id number] Sodium Chloride 0.9% 1, 600 000 ml @ 75 mls/hr IV . [id number] [facility] Rx#:[id number] Oral 500 Output: Urine 2150 1200 Other: Voiding Method Indwelling Catheter Indwelling Catheter Indwelling Catheter - Exam GENERAL DESCRIPTION: An elderly male lying in bed in no distress RESPIRATORY SYSTEM: Unlabored breathing , decreased breath sounds at bases HEART: S1 S2 regular rate and rhythm , ABDOMEN: Soft , no tenderness EXTREMITIES: No edema feet - Labs CBC & Chem 7: 07/28/24 04:21 07/28/24 04:21 Labs: Abnormal Lab Results - Last 24 Hours (Table) 07/28/24 07/28/24 Range/Units 04:21 04:21 RBC 3.52 L (4.40-5.60) X 10*6/uL Hgb 10.6 L (13.0-17.0) g/dL Hct 32.4 L (39.6-50.0) % MPV 12.7 H (9.5-12.2) FL Immature Gran # 0.19 H (0.00-0.04) X 10*3/uL Calcium 8.2 L (8.7-10.3) mg/dL Assessment and Plan (1) Sepsis Current Visit: Yes Status: Acute Code(s): A41.9 - SEPSIS, UNSPECIFIED ORGANISM SNOMED Code(s): 53456396 (2) UTI (urinary tract infection) Current Visit: Yes Status: Acute Code(s): N39.0 - URINARY TRACT INFECTION, SITE NOT SPECIFIED SNOMED Code(s): 47530005 (3) Infection due to ESBL-producing Escherichia coli Current Visit: Yes Status: Acute Code(s): A49.8 - OTHER BACTERIAL INFECTIONS OF UNSPECIFIED SITE; Z16.12 - EXTENDED SPECTRUM BETA LACTAMASE (ESBL) RESISTANCE SNOMED Code(s): 328706679 Plan: 1patient presented to hospital with sepsis in this patient who did have a fever elevated white count source is urinary tract infection with a urine culture done in the outpatient setting positive for ESBL E. coli likely in the infected pathogen failing outpatient oral antibiotic therapy. 2patient also have elevated creatinine concerning for possible obstructive uropathy which has been confirmed on abdominal ultrasound urology has been consulted patient did have Julio catheter placement. 3patient white count has normalized blood culture negative antibiotic will be switched over to Invanz 1 g daily to finish a total of 2-week course of therapy Dictation was produced using [employer] dictation software. please excuse any grammatical, word or spelling errors. Time with Patient: Less than 30
[2024-07-29 08:49] VITALS: RESP 17
[2024-07-29] MEDS: ERTAPENEM 1 GM in SODIUM CHLORIDE 0.9% 50 ML IVPB SCH (09:16)
--- NOTE | 2024-07-29 12:59 | P.PN ---
Subjective patient is seen for follow-up for acute kidney injury associated with hypotension an obstructive uropathy. Currently with indwelling Julio catheter. Hematuria has improved. Serum creatinine improved to 1.0 . No complaints today. Objective - Vital Signs Vital signs: Vital Signs Temp 97.9 F 07/29/24 07:29 Pulse 71 07/29/24 09:16 Resp 17 07/29/24 07:29 BP 137/83 07/29/24 07:29 Pulse Ox 95 07/29/24 07:29 FiO2 Intake & Output 07/28/24 07/29/24 07/29/24 18:59 06:59 18:59 Intake Total 100 Output Total 1100 Balance 100 -1100 Intake: Intake, IV Titration 100 Amount Meropenem 1 gm In Sodium 100 Chloride 0.9% 100 ml @ 33 .3 mls/hr IVPB Q12HR [facility] Rx#:[id number] Output: Urine 1100 Uretheral (Julio) 1100 Other: Voiding Method Indwelling Catheter Indwelling Catheter Indwelling Catheter - Exam Patient is awake, comfortable, no acute distress. 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 - Labs CBC & Chem 7: 07/28/24 04:21 07/28/24 04:21 Labs: Microbiology - Last 24 Hours (Table) 07/23/24 22:37 Blood Culture - Final Blood Assessment and Plan Assessment: 1. Acute kidney injury, ATN secondary to hypotension and obstructive uropathy. Improved. Ultrasound shows bilateral hydronephrosis. UA shows 1+ protein and WBCs more than 182 2. UTI with urine culture growing E. coli 3. History of hypertension maintained on losartan prior to admission. 4. Recent diagnosis of UTI started on Cipro 1 day prior to admission. 5. Hematuria secondary to bladder decompression. Plan: . Encouraged increased oral intake. okay to resume losartan if blood pressure is elevated. Currently within range. continue with Julio catheter.
[2024-07-29 13:57] VITALS: BP 130/70; PULSE 67; TEMP 97.8
--- NOTE | 2024-07-29 15:39 | P.PN ---
Subjective Progress Note Date: 07/29/24 Principal diagnosis: Reason for follow-up is complicated UTI Patient is a 79-year-old male with a past medical history significant for hypertension hyperlipidemia, prostate disorder history of recurrent UTI apparently the patient did have outpatient urine culture done which came back positive with a ESBL E. coli for the patient was advised to go to the hospital for IV antibiotic therapy. On today's evaluation that is 07/29/2024, Patient is afebrile this morning pat ient denies having any chest pain shortness of breath or cough, the patient is breathing comfortably and currently on room air, patient denies any abdominal pain no diarrhea no nausea no vomiting Patient white count normalized to 9.17, creatinine 1.0 blood culture has been negative Objective - Vital Signs Vital signs: Vital Signs Temp 97.8 F 07/29/24 13:12 Pulse 67 07/29/24 13:12 Resp 17 07/29/24 13:12 BP 130/70 07/29/24 13:12 Pulse Ox 93 L 07/29/24 13:12 FiO2 Intake & Output 07/28/24 07/29/24 07/29/24 18:59 06:59 18:59 Intake Total 100 Output Total 1100 Balance 100 -1100 Intake: Intake, IV Titration 100 Amount Meropenem 1 gm In Sodium 100 Chloride 0.9% 100 ml @ 33 .3 mls/hr IVPB Q12HR [facility] Rx#:[id number] Output: Urine 1100 Uretheral (Julio) 1100 Other: Voiding Method Indwelling Catheter Indwelling Catheter Indwelling Catheter - Exam GENERAL DESCRIPTION: An elderly male lying in bed in no distress RESPIRATORY SYSTEM: Unlabored breathing , decreased breath sounds at bases HEART: S1 S2 regular rate and rhythm , ABDOMEN: Soft , no tenderness EXTREMITIES: No edema feet - Labs CBC & Chem 7: 07/28/24 04:21 07/28/24 04:21 Labs: Microbiology - Last 24 Hours (Table) 07/23/24 22:37 Blood Culture - Final Blood Assessment and Plan (1) Sepsis Current Visit: Yes Status: Acute Code(s): A41.9 - SEPSIS, UNSPECIFIED ORGANISM SNOMED Code(s): 96396416 (2) UTI (urinary tract infection) Current Visit: Yes Status: Acute Code(s): N39.0 - URINARY TRACT INFECTION, SITE NOT SPECIFIED SNOMED Code(s): 97844210 (3) Infection due to ESBL-producing Escherichia coli Current Visit: Yes Status: Acute Code(s): A49.8 - OTHER BACTERIAL INFECTIONS OF UNSPECIFIED SITE; Z16.12 - EXTENDED SPECTRUM BETA LACTAMASE (ESBL) RESISTANCE SNOMED Code(s): 459416118 Plan: 1patient presented to hospital with sepsis in this patient who did have a fever elevated white count source is urinary tract infection with a urine culture done in the outpatient setting positive for ESBL E. coli likely in the infected pathogen failing outpatient oral antibiotic therapy. 2patient also have elevated creatinine concerning for possible obstructive uropathy which has been confirmed on abdominal ultrasound urology has been consulted patient did have Julio catheter placement. 3patient white count has normalized blood culture negative antibiotic 4-patient to continue with Invanz 1 g daily to finish a total of 2-week course of therapy, at the bedside questions were answered Dictation was produced using [employer] dictation software. please excuse any grammatical, word or spelling errors.
--- NOTE | 2024-07-29 16:05 | P.DS ---
Providers Date of admission: 07/27/24 10:13 Expected date of discharge: 07/29/24 Attending physician: Gianna Aragon Consults: 07/23/24 21:45 Consult Physician Routine Consulting Provider: Luis Alfredo Russ Consult Reason/Comments: CURTIS Do you want consulting provider notified?: Yes 07/23/24 21:46 Consult Physician Routine Consulting Provider: Cate Mercado Consult Reason/Comments: ESBL UTI Do you want consulting provider notified?: Yes 07/25/24 12:05 Consult Physician Routine Consulting Provider: Soham Davidson Consult Reason/Comments: hydro Do you want consulting provider notified?: Yes Primary care physician: Catherine Lancaster Hospital Course: Final diagnosis Complicated UTI: ESBL: Present on admission with sepsis Hypotension: Secondary to sepsis Acute metabolic encephalopathy: Resolved Probable dementia History of hypertension History of hyperlipidemia History of prostate disorder with an enlarged prostate Acute kidney injury with bilateral hydronephrosis: Secondary to complicated UTI DVT prophylaxis Generalized weakness with gait dysfunction GI prophylaxis Discharge disposition Patient is being discharged in a stable condition with guarded prognosis to [facility]. Patient will follow-up with Dr. Lancaster in the outpatient setting upon discharge. Patient is to continue with IV Invanz for 2 weeks and patient has received a midline. Patient to follow-up with nephrology and urology outpatient as scheduled. Total time taken is greater than 35 minutes. Hospital course This is a 79-year-old male who was recently admitted with complicated UTI noted to have ESBL with sepsis, present on admission. Patient also with acute metabolic encephalopathy that has improved although patient has probable dementia. Patient noted to have bilateral hydronephrosis with acute kidney injury on admission secondary to the complicated UTI and was evaluated by nephrology showing improvements. Current kidney functions show a BUN of 16 and creatinine is 1.0, sodium 142 with a potassium of 3.6. White count has normalized and is 9.17 and hemoglobin is stable at 10.6. Patient is to continue with an indwelling Julio catheter and outpatient follow-up with urology and nephrology. Recommend repeat labs of CBC, CMP, magnesium in 2 to 3 days. Patient with generalized weakness and the need for IV antibiotic therapy family concerned with safe discharge planning and would like him to go to [facility]. Patient has been accepted at [facility] and has received insurance authorization. Patient will be discharged to [facility] today. Please refer to other consultation notes for further HPI. Currently no reports of chest pain, shortness of breath, or palpitations. Patient is afebrile. No reports of nausea or vomiting and patient is tolerating diet. Patient will be going to [facility] today. Guarded prognosis and high risk for readmissions given patient's significant comorbidities. Physical exam: Gen: This is a 79-year-old male who is awake, alert and oriented x 2, baseline, well-developed, elderly appearing, thin built HEENT: Head is atraumatic, normocephalic. Pupils equal, round. Sclerae is anicteric. NECK: Supple. No JVD. No lymphadenopathy. No thyromegaly. LUNGS: Clear to auscultation. No wheezes or rhonchi. No intercostal retractions. HEART: S1, S2 are muffled ABDOMEN: Soft. Bowel sounds are present. No masses. No tenderness. EXTREMITIES: No pedal edema. No calf tenderness. NEUROLOGICAL: Patient is awake, alert and oriented x2. Cranial nerves 2 through 12 are grossly intact. Diffusely weak Please refer to medication reconciliation sheet for a list of medications. The impression and plan of care has been dictated by Jasmine Caballero, Nurse Practitioner as directed. Dr. Yazan MD I have performed a history and examination and MDM of this patient, discussed the same with the dictator, and agree with the dictator's assessment and plan as written ,documented as a scribe. Based on total visit time, I have performed more than 50% of the visit. Patient Condition at Discharge: Good Plan - Discharge Summary Discharge Rx Participant: Yes New Discharge Prescriptions: No Action Simvastatin 20 mg PO HS amLODIPine [Norvasc] 5 mg PO HS Aspirin [Adult Low Dose Aspirin EC] 81 mg PO DAILY Losartan Potassium 100 mg PO HS Ciprofloxacin HCl [Cipro] 500 mg PO DIRECTED Discharge Medication List Simvastatin 20 mg PO HS 09/28/15 [History] Aspirin [Adult Low Dose Aspirin EC] 81 mg PO DAILY 07/21/19 [History] amLODIPine [Norvasc] 5 mg PO HS 07/21/19 [History] Ciprofloxacin HCl [Cipro] 500 mg PO DIRECTED 07/23/24 [History] Losartan Potassium 100 mg PO HS 07/23/24 [History] Follow up Appointment(s)/Referral(s): Catherine Lancaster MD [Primary Care Provider] - 1-2 days Soham Davidson MD [STAFF PHYSICIAN] - 2 Weeks (Cystoscopy and Urodynamics ) Jose De La O, [NON-STAFF] - As Needed Cate Mercado MD [STAFF PHYSICIAN] - 1 Week
== END 2024-07-29 18:48 | DRG 871 ==
LOC: EC 15:28 → 4SSUR 17:30 → OBSVTOIN 07-27 10:13
PROVIDERS: ADMIT Internal Medicine; ATTEND Internal Medicine
DX: A41.51 Sepsis due to Escherichia coli [E. coli] (principal); G93.41 Metabolic encephalopathy; N17.0 Acute kidney failure with tubular necrosis; T83.83XA Hemorrhage due to genitourinary prosthetic devices, implants and grafts, initial encounter; N13.6 Pyonephrosis; Z16.12 Extended spectrum beta lactamase (ESBL) resistance; F03.90 Unspecified dementia, unspecified severity, without behavioral disturbance, psychotic disturbance, mood disturbance, and anxiety; I10 Essential (primary) hypertension; R35.0 Frequency of micturition; B96.20 Unspecified Escherichia coli [E. coli] as the cause of diseases classified elsewhere; N40.1 Benign prostatic hyperplasia with lower urinary tract symptoms; E78.5 Hyperlipidemia, unspecified; F17.210 Nicotine dependence, cigarettes, uncomplicated; R32 Unspecified urinary incontinence; R26.9 Unspecified abnormalities of gait and mobility; R31.0 Gross hematuria; Y84.6 Urinary catheterization as the cause of abnormal reaction of the patient, or of later complication, without mention of misadventure at the time of the procedure; Z79.82 Long term (current) use of aspirin; Z79.899 Other long term (current) drug therapy; Z87.440 Personal history of urinary (tract) infections
CPT/HCPCS: 36410; 36600; 76770; 76937; 80048; 80053; 83735; 85025; 87077; 87086; 87186; 93005; 96360; 99285

== ENCOUNTER → 2024-09-08 | Outpatient (CLI) | payer MEDICARE ==
[2024-09-08 18:28] LABS: ALT 15 U/L (10-49); AST 22 U/L (14-35); Albumin 4.2 g/dL (3.8-4.9); Albumin/Globulin Ratio 1.11 Ratio (1.60-3.17); Alkaline Phosphatase 135 U/L (41-126); BUN/Creat Ratio 21.11 Ratio (12.00-20.00); Calcium 9.5 mg/dL (8.7-10.3); Carbon Dioxide 25.3 mmol/L (21.6-31.8); Chloride 104 mmol/L (96-109); Globulin 3.8 g/dL (1.6-3.3); Glucose 91 mg/dL (70-110); Potassium 4.3 mmol/L (3.5-5.5); Sodium 142 mmol/L (135-145); Total Bilirubin 0.3 mg/dL (0.3-1.2)
[2024-09-08 18:50] LABS: Basophils # (A) 0.04 X 10*3/uL (0.00-0.10); Basophils % (A) 0.5 %; Eosinophils # (A) 0.45 X 10*3/uL (0.04-0.35); Eosinophils % (A) 6.1 %; HCT 36.3 % (39.6-50.0); HGB 11.6 g/dL (13.0-17.0); Lymphocytes # (A) 2.22 X 10*3/uL (0.90-5.00); Lymphocytes % (A) 30.1 %; MCH 29.9 pg (27.0-32.0); MCV 93.6 FL (80.0-97.0); Mean Platelet Volume 11.7 FL (9.5-12.2); Monocytes % (A) 6.8 %; NRBC Per 100 WBC 0 X 10*3/uL (0.00-0.01); Neutrophils % (A) 55.6 %; Platelet Count 289 X 10*3/uL (140-440); RBC 3.88 X 10*6/uL (4.40-5.60); RDW 13.7 % (11.5-14.5); WBC 7.38 X 10*3/uL (4.50-10.00)
== END | disposition home or self-care (01) ==
LOC: LABT 13:39
PROVIDERS: ATTEND Internal Medicine
DX: N28.9 Disorder of kidney and ureter, unspecified (principal)
CPT/HCPCS: 36415; 80053; 84165; 85025

== ENCOUNTER → 2024-09-24 | Outpatient (CLI) | payer MEDICARE ==
[2024-09-25 02:24] LABS: Basophils # (A) 0.02 X 10*3/uL (0.00-0.10); Basophils % (A) 0.2 %; Eosinophils # (A) 0.28 X 10*3/uL (0.04-0.35); Eosinophils % (A) 3.2 %; HGB 11.2 g/dL (13.0-17.0); Lymphocytes % (A) 6.9 %; MCH 29.6 pg (27.0-32.0); MCV 92.6 FL (80.0-97.0); Mean Platelet Volume 11.9 FL (9.5-12.2); Monocytes # (A) 0.61 X 10*3/uL (0.20-1.00); NRBC Per 100 WBC 0 X 10*3/uL (0.00-0.01); Neutrophils # (A) 7.13 X 10*3/uL (1.80-7.70); Neutrophils % (A) 82.4 %; Platelet Count 270 X 10*3/uL (140-440); RBC 3.78 X 10*6/uL (4.40-5.60); RDW 13.2 % (11.5-14.5); WBC 8.67 X 10*3/uL (4.50-10.00)
[2024-09-25 02:51] LABS: BUN/Creat Ratio 16.09 Ratio (12.00-20.00); Blood Urea Nitrogen 17.7 mg/dL (9.0-27.0); Calcium 9.6 mg/dL (8.7-10.3); Carbon Dioxide 23.1 mmol/L (21.6-31.8); Chloride 102 mmol/L (96-109); Glucose 94 mg/dL (70-110); Potassium 4.2 mmol/L (3.5-5.5); Sodium 138 mmol/L (135-145)
== END | disposition home or self-care (01) ==
LOC: LABPAT 14:38
PROVIDERS: ATTEND Urology
DX: N40.1 Benign prostatic hyperplasia with lower urinary tract symptoms (principal); R33.9 Retention of urine, unspecified
CPT/HCPCS: 80048; 85025

== ENCOUNTER 2024-09-30 07:24 | Day surgery (SDC) | payer MEDICARE ==
[~2024-09-30 07:24] MED LIST changes: +HYDROmorphone 0.5 MG/0.5 ML SYRINGE IVP PRN; +LIDOCAINE 1% (10MG/ML) FOR IV START INTRADERMA PRN; -LIDOCAINE 1% 20 ML VIAL (10MG/ML) FOR IV START INTRADERMA PRN
[2024-09-30] MEDS: IV FLUID CONTINUATION 1,000 ML IV ONE (07:52)
[2024-09-30] MEDS: ONDANSETRON 4 MG/2 ML VIAL IVP PRN (08:10)
[2024-09-30] MEDS: LACTATED RINGERS 1,000 ML IV SCH (08:10)
[2024-09-30] MEDS: DEXAMETHASONE SOD PHOSPHATE 4 MG/ML 1 ML VIAL IV ONE (08:10)
[2024-09-30] MEDS ORDERED: GLYCOPYRROLATE 0.2 MG/ML 2 ML VIAL ONE (09:15)
[2024-09-30] MEDS ORDERED: HYDROmorphone (PF) 1 MG/ML ONE (09:15)
[2024-09-30] MEDS ORDERED: LIDOCAINE 1% INJ 10MG/ML (20 ML MDV) ONE (09:15)
[2024-09-30] MEDS ORDERED: ePHEDrine 50 MG/ML 1 ML VIAL ONE (09:15)
[2024-09-30] MEDS ORDERED: NEOSTIGMINE 1 MG/ML 10 ML VIAL ONE (09:15)
[2024-09-30] MEDS ORDERED: PHENYLEPHRINE-0.9% NACL SYG 1,000 MCG/10 ML SYRINGE ONE (09:15)
[2024-09-30] MEDS ORDERED: fentaNYL (PF) 50 MCG/ML 2 ML AMP ONE (09:15)
[2024-09-30] MEDS ORDERED: SUCCINYLCHOLINE CHLORIDE 200 MG/10 ML VIAL IV ONE (09:15)
[2024-09-30] MEDS ORDERED: PROPOFOL 10 MG/ML 20 ML VIAL IV ONE (09:15)
[2024-09-30] MEDS ORDERED: ROCURONIUM 10 MG/ML (5 ML VIAL) IV ONE (09:15)
--- NOTE | 2024-09-30 09:24 | P.GSHP ---
History of Present Illness H&P Date: 09/30/24 Chief Complaint: Urinary Retention The patient is an 79-year-old white male well-known to me. His PSA level has been persistently elevated and was most recently 8.36 in April 2024. In 2011, he underwent a prostate ultrasound with biopsies. The prostate volume at that time was 45 cc, and biopsies were negative. An MRI of the prostate performed earlier this year revealed a volume of 79 cc with no suspicious lesions seen. He has been verified in the past to be emptying his bladder adequately. When seen in April, urinalysis showed no evidence of infection and his voiding symptoms were stable. He was recently treated for a UTI with ciprofloxacin, but failed to improve. A urine culture sent on July 20 showed ESBL E. coli, for which he is currently receiving meropenem. Renal ultrasound showed marked right hydronephrosis, moderate left hydronephrosis, and an irregular posterior bladder wall with debris. A Julio catheter was subsequently placed. He is a vague historian but states that he has worn diapers for the past month or so due to urinary incontinence. He was found to be in urinary retention, and has failed voiding trials. Urodynamic testing shows normal detrusor function. Cystoscopy shows an obstructing prostate, and he now comes for a TURP. 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 hospitalized 07/2024 for 9 days and then ECF for 2 weeks for iv abx. currently has IDC and on p.o. abx. History of Any Multi-Drug Resistant Organisms: ESBL Date of last positivie culture/infection: 06/2024 MDRO Source:: urine Past Surgical History: Appendectomy Additional Past Surgical History / Comment(s): 3 stents placed at [place] in aorta. colonoscopy Past Anesthesia/Blood Transfusion Reactions: No Reported Reaction Smoking Status: Former smoker, Light tobacco smoker - Past Family History Father Family Medical History: Cancer Brother(s) Family Medical History: Cancer Sister(s) Family Medical History: Cancer Mother Family Medical History: Coronary Artery Disease (CAD) Medications and Allergies Home Medications Medication Instructions Recorded Confirmed Type Simvastatin 20 mg PO HS 09/28/15 09/30/24 History Aspirin [Adult Low Dose Aspirin EC] 81 mg PO DAILY 07/21/19 09/30/24 History Losartan Potassium 100 mg PO HS 09/27/24 09/30/24 History Sulfamethoxazole/Trimethoprim 1 each PO BID 09/27/24 09/30/24 History [Sulfamethoxazole/Trimethoprim DS Tablet] amLODIPine [Norvasc] 5 mg PO HS 09/27/24 09/30/24 History Allergies Allergy/AdvReac Type Severity Reaction Status Date / Time No Known Allergies Allergy Verified 09/30/24 08:12 Surgical - Exam Vital Signs Temp Pulse Resp BP Pulse Ox 97.0 F L 69 16 130/70 96 09/30/24 08:20 09/30/24 08:20 09/30/24 08:20 09/30/24 08:20 09/30/24 08:20 - General well developed, well nourished, no distress - Respiratory normal respiratory effort - Abdomen Abdomen: soft, non tender, no guarding, no rigid, no rebound - Genitourinary normal penis with no external lesions, testicles non-tender - Rectum Rectum: normal sphincter tone, no masses, other (prostate moderately enlarged and smooth) - Psychiatric oriented to time, oriented to person, oriented to place, speech is normal, memory intact Assessment and Plan (1) Retention of urine, unspecified Current Visit: Yes Status: Acute Code(s): R33.9 - RETENTION OF URINE, UNS PECIFIED SNOMED Code(s): 323989607 (2) Benign prostatic hyperplasia with lower urinary tract symptoms Current Visit: Yes Status: Acute Code(s): N40.1 - BENIGN PROSTATIC HYPERPLASIA WITH LOWER URINARY TRACT SYMP SNOMED Code(s): 730777167 Plan: Cystoscopy, bipolar transurethral resection of prostate (TURP). The procedure has been reviewed in detail with the patient and his . They are aware of potential risks, which include potential risks have been reviewed with the patient, including anesthesia, bleeding, infection, urinary incontinence, and persistent urinary retention.
[2024-09-30] MEDS: LACTATED RINGERS 1,000 ML IV ONE (10:59)
--- NOTE | 2024-09-30 12:38 | P.OP ---
Date of Procedure: 09/30/24 Preoperative Diagnosis: Urinary Retention Secondary to BPH Postoperative Diagnosis: Same Procedure(s) Performed: Cystoscopy, bipolar transurethral resection of prostate (TURP) Anesthesia: PAT Surgeon: Soham Davidson Estimated Blood Loss (ml): 50 IV fluids (ml): 900 Condition: stable Disposition: PACU Indications for Procedure: The patient is an 79-year-old white male well-known to [place]. His PSA level has been persistently elevated and was most recently 8.36 in April 2024. In 2011, he underwent a prostate ultrasound with biopsies. The prostate volume at that time was 45 cc, and biopsies were negative. An MRI of the prostate performed earlier this year revealed a volume of 79 cc with no suspicious lesions seen. He has been verified in the past to be emptying his bladder adequately. When seen in April, urinalysis showed no evidence of infection and his voiding symptoms were stable. He was recently treated for a UTI with ciprofloxacin, but failed to improve. A urine culture sent on July 20 showed ESBL E. coli, for which he is currently receiving meropenem. Renal ultrasound showed marked right hydronephrosis, moderate left hydronephrosis, and an irregular posterior bladder wall with debris. A Julio catheter was subsequently placed. He is a vague historian but states that he has worn diapers for the past month or so due to urinary incontinence. He was found to be in urinary retention, and has failed voiding trials. Urodynamic testing shows normal detrusor function. Cystoscopy shows an obstructing prostate, and he now comes for a TURP. Operative Findings: Bilobar BPH, obstructing. Description of Procedure: The patient was taken in the operating room and placed in the dorsolithotomy position. The external genitalia was prepped and draped sterilely. The 25- [place] ACMI resectoscope sheath was introduced into the bladder. The bladder was inspected. Both ureteral orifices were of normal anatomic location and configuration, and clear urine effluxed from both. No tumors or foreign bodies were seen. There is evidence of catheter cystitis. Examination of the prostate revealed complete obstruction with a bilobar configuration. Using the bipolar cutting loop, the lateral lobes were resected down to the surgical capsule. The floor of the prostate was then resected, proximal to the verumontanum. Next, the remaining anterior tissue was resected. The residual apical tissue was then carefully resected, with care taken to avoid injury to the external urinary sphincter. The resection was carried down to the surgical capsule in all 4 quadrants. The prostatic fossa was then carefully examined, and any areas of bleeding were controlled with electrocautery. Excellent hemostasis was attained. The resectoscope was withdrawn into the bulbous urethra. The external urinary sphincter remained intact. The prostatic fossa was open. The [employer] evacuator was used to remove all prostate chips from the bladder. These were saved and sent for pathologic examination. The resectoscope was removed, and a 20 [place]ian Julio catheter was placed. The return was essentially clear. The patient tolerated the procedure well was taken to the recovery room in stable condition.
[2024-09-30 12:42] VITALS: TEMP 97.2
[2024-09-30 15:13] VITALS: BP 109/71; PULSE 88; RESP 17
== END 2024-09-30 15:53 | disposition home or self-care (01) ==
LOC: OR 07:24
PROVIDERS: ATTEND Urology
DX: N40.1 Benign prostatic hyperplasia with lower urinary tract symptoms (principal); N41.0 Acute prostatitis; R33.8 Other retention of urine; E78.5 Hyperlipidemia, unspecified; F31.9 Bipolar disorder, unspecified; I10 Essential (primary) hypertension; J44.9 Chronic obstructive pulmonary disease, unspecified; M19.90 Unspecified osteoarthritis, unspecified site; Z87.440 Personal history of urinary (tract) infections; Z87.891 Personal history of nicotine dependence; Z90.49 Acquired absence of other specified parts of digestive tract; Z79.82 Long term (current) use of aspirin; Z79.899 Other long term (current) drug therapy
CPT/HCPCS: 52601; J1100; J0690; J2405; 88305

== ENCOUNTER → 2024-12-15 | Outpatient (CLI) | payer MEDICARE ==
[2024-12-15 11:09] LABS: Creatinine,Urine Random 69.8 mg/dL; Protein/Creatinine Ratio,Urine 1.304
[2024-12-15 15:13] LABS: HCT 38.6 % (39.6-50.0); HGB 12.6 g/dL (13.0-17.0); MCH 28.8 pg (27.0-32.0); MCHC 32.6 g/dL (32.0-37.0); MCV 88.3 FL (80.0-97.0); Mean Platelet Volume 11.3 FL (9.5-12.2); NRBC Per 100 WBC 0 X 10*3/uL (0.00-0.01); Platelet Count 205 X 10*3/uL (140-440); RBC 4.37 X 10*6/uL (4.40-5.60); RDW 13.4 % (11.5-14.5); WBC 6.19 X 10*3/uL (4.50-10.00)
[2024-12-15 17:52] LABS: ALT 20 U/L (10-49); AST 31 U/L (14-35); Albumin 4.6 g/dL (3.8-4.9); Albumin/Globulin Ratio 1.35 Ratio (1.60-3.17); Alkaline Phosphatase 129 U/L (41-126); BUN/Creat Ratio 22.11 Ratio (12.00-20.00); Blood Urea Nitrogen 19.9 mg/dL (9.0-27.0); Calcium 9.5 mg/dL (8.7-10.3); Carbon Dioxide 24.8 mmol/L (21.6-31.8); Chloride 102 mmol/L (96-109); Globulin 3.4 g/dL (1.6-3.3); Glucose 109 mg/dL (70-110); Phosphorus 3.5 mg/dL (2.4-5.1); Potassium 4.1 mmol/L (3.5-5.5); Sodium 140 mmol/L (135-145); Total Bilirubin 0.4 mg/dL (0.3-1.2)
[2024-12-15 20:27] LABS: Urine Creatinine 78.1 mg/dL (39.0-259.0)
== END | disposition home or self-care (01) ==
LOC: LABWHC1 10:06
PROVIDERS: ATTEND Nurse Practitioner Acute Care
DX: D64.9 Anemia, unspecified (principal); R80.9 Proteinuria, unspecified; N17.9 Acute kidney failure, unspecified
CPT/HCPCS: 36415; 80053; 82043; 82570; 83735; 84100; 84156; 85027

== ENCOUNTER → 2025-01-20 | Outpatient (CLI) | payer MEDICARE ==
--- NOTE | 2025-01-22 15:18 | MR ---
EXAMINATION TYPE: MR angio head wo/neck wo/w con DATE OF EXAM: 01/20/2025 7:36 PM COMPARISON: None. CLINICAL INDICATION: Male, 79 years old with history of I67.9 CEREBROVASCULAR DISEASE, UNSPECIFIED, c erebrovascular disease TECHNIQUE: Multiplanar multiecho imaging on a 3.0 Elisha magnet is performed through the [place]. 3-D [id number] imaging is performed. Source images are reviewed on the computer in the axi al plane. Reconstructed images rotating on the computer are reviewed. IV Contrast: 7ml mL Gadobutrol (None, if empty) FINDINGS: MRA neck: No flow gaps are evident. Common carotid artery bifurcations appear normal. Internal caroti d arteries are patent to the skull base. Vertebral arteries appear codominant. MRA [place]: The internal carotid arteries bifurcate normally into A1 and M1 segments. The A2 segments are normal. Middle cerebral artery branches are normal. Anterior communicating artery is patent. The right posterior communicating artery is widely patent. The left posterior communicating artery is patent. Vertebrobasilar arteries within the [id number] are normal. Posterior cerebral vasculature is norm al. No suspicious aneurysm or aneurysmal dilatation is evident. No obstructions are identified. No significant flow-limiting stenosis is evident. IMPRESSION: 1. No flow-limiting stenosis bilateral carotid bifurcations. 2. Normal [place]. [facility], , 01/22/2025 3:16 PM
--- NOTE | 2025-01-22 15:25 | MR ---
EXAMINATION TYPE: MR brain wo con DATE OF EXAM: 01/20/2025 7:37 PM COMPARISON: CT brain 09/24/2019 left-sided facial numbness CLINICAL INDICATION: Male, 79 years old with history of I67.9 CEREBROVASCULAR DISEASE, UNSPECIFIED, c erebrovascular disease TECHNIQUE: Multiplanar, multiecho imaging on a 3.0 Elisha magnet is performed through the brain. Stud y is performed within 24 hours of arrival to the hospital.Multiplanar, multiecho imaging on a 3.0 [place] magnet is performed through the knee. IV Contrast: mL (None, if empty) FINDINGS: The craniovertebral junction is normal. There is some prominence of the soft tissues surrounding the dens. No dens abnormality is identified on prior CT. Consider repeat CT cervical spine. The pituitary is normal. Diffusion-weighted imaging is performed. No abnormal hyperintensity is present to suggest an acute i ntracranial infarct or acute ischemic change. There is mild periventricular hyperintensity on T2 and Inversion Recovery weighted sequences which ar e non-specific but can be related to microvascular ischemic changes. Ventricles and sulci are prominent for the patient age. IMPRESSION: 1. Atrophy. 2. Mild chronic appearing periventricular white matter ischemic changes. 3. Note is made of thickening of the ligaments surrounding the dens. This may be degenerative. Consid er CT of the cervical spine. [facility], , 01/22/2025 3:23 PM
== END | disposition home or self-care (01) ==
LOC: RADMRIMAIN 17:44
PROVIDERS: ATTEND Psychiatry & Neurology Neurology
DX: I65.23 Occlusion and stenosis of bilateral carotid arteries (principal); I67.82 Cerebral ischemia; G31.9 Degenerative disease of nervous system, unspecified
CPT/HCPCS: 70544; 70549; 70551; A9585

== ENCOUNTER → 2025-02-21 | Outpatient (CLI) | payer MEDICARE, SELFPAY ==
[2025-02-21 19:16] LABS: T4, Free (Free Thyroxine) 0.93 ng/dL (0.80-1.80)
== END | disposition home or self-care (01) ==
LOC: LABWHC1 13:18
PROVIDERS: ATTEND Psychiatry & Neurology Neurology
DX: R41.3 Other amnesia (principal); R73.9 Hyperglycemia, unspecified
CPT/HCPCS: 36415; 82306; 82607; 83036; 83090; 84207; 84439; 84443

== ENCOUNTER → 2025-04-07 | Outpatient (CLI) | payer MEDICARE, SELFPAY | END | disposition home or self-care (01) | LOC: LABWHC1 11:09 | PROVIDERS: ATTEND Urology | DX: R97.20 Elevated prostate specific antigen [PSA] (principal) | CPT/HCPCS: 36415; 84153 ==

== ENCOUNTER → 2025-06-06 | Outpatient (CLI) | payer MEDICARE, SELFPAY ==
[2025-06-06 16:03] LABS: Basophils # (A) 0.03 X 10*3/uL (0.00-0.10); Basophils % (A) 0.5 %; Eosinophils # (A) 0.19 X 10*3/uL (0.04-0.35); Eosinophils % (A) 3.0 %; HCT 41.6 % (39.6-50.0); HGB 13.3 g/dL (13.0-17.0); Immature Grans, Automated 0.50 %; Lymphocytes # (A) 1.62 X 10*3/uL (0.90-5.00); Lymphocytes % (A) 25.3 %; MCH 29.4 pg (27.0-32.0); MCHC 32.0 g/dL (32.0-37.0); MCV 91.8 FL (80.0-97.0); Monocytes # (A) 0.56 X 10*3/uL (0.20-1.00); Monocytes % (A) 8.7 %; NRBC Per 100 WBC 0 X 10*3/uL (0.00-0.01); Neutrophils # (A) 3.98 X 10*3/uL (1.80-7.70); Neutrophils % (A) 62.0 %; Platelet Count 186 X 10*3/uL (140-440); RBC 4.53 X 10*6/uL (4.40-5.60); RDW 13.2 % (11.5-14.5); WBC 6.41 X 10*3/uL (4.50-10.00)
[2025-06-06 16:05] LABS: ALT 27 U/L (10-49); AST 28 U/L (14-35); Albumin 4.7 g/dL (3.8-4.9); Albumin/Globulin Ratio 1.68 Ratio (1.60-3.17); Alkaline Phosphatase 123 U/L (41-126); Anion Gap 13.20 mmol/L (4.00-12.00); BUN/Creat Ratio 29.00 Ratio (12.00-20.00); Blood Urea Nitrogen 23.2 mg/dL (9.0-27.0); Calcium 9.7 mg/dL (8.7-10.3); Carbon Dioxide 24.8 mmol/L (21.6-31.8); Chloride 105 mmol/L (96-109); Cholesterol 148.00 mg/dL (0.00-200.00); Globulin 2.8 g/dL (1.6-3.3); Glucose 119 mg/dL (70-110); HDL Cholesterol 44.50 mg/dL (40.00-60.00); LDL Cholesterol,Calculated 80.5 mg/dL (0.0-131.0); Potassium 4.4 mmol/L (3.5-5.5); Prostate Specific Antigen 1.93 ng/mL (0.000-6.500); Sodium 143 mmol/L (135-145); T4, Free (Free Thyroxine) 0.93 ng/dL (0.80-1.80); Total Protein 7.5 g/dL (6.2-8.2); Triglycerides 115.00 mg/dL (0.00-149.00); VLDL Calculation 23.00 mg/dL (5.00-40.00)
== END | disposition home or self-care (01) ==
LOC: LABWHC1 09:20
PROVIDERS: ATTEND Internal Medicine
DX: Z12.5 Encounter for screening for malignant neoplasm of prostate (principal); I10 Essential (primary) hypertension; E78.5 Hyperlipidemia, unspecified; E55.9 Vitamin D deficiency, unspecified
CPT/HCPCS: 36415; 80053; 80061; 82306; 84153; 84439; 84443; 85025